=== PATIENT | male | born 1965 | race Caucasian/White ===

== ENCOUNTER 2016-11-08 09:00 | Observation (INO) | payer OTHER ==
[2016-10-29 08:12] VITALS: BMI 24.0
--- NOTE | 2016-10-29 08:39 | PAT Medication Instructions ---
Service Date Oct 29, 2016. Current Home Medication List Hydromorphone Hcl (Dilaudid), 2 MG PO Q6H PRN for Pain Oxycodone Ir (Roxicodone Ir), 5 MG PO Q4H PRN for Severe Pain Medication Instructions For Your Scheduled Surgery - Take the following medications the morning of surgery with a sip of water: Hydromorphone Hcl (Dilaudid), 2 MG PO Q6H PRN for Pain (can take up to four hours prior to surgery if needed) Oxycodone Ir (Roxicodone Ir), 5 MG PO Q4H PRN for Severe Pain (can take up to four hours prior to surgery if needed) - Take the following medications as scheduled the night before surgery: Hydromorphone Hcl (Dilaudid), 2 MG PO Q6H PRN for Pain Oxycodone Ir (Roxicodone Ir), 5 MG PO Q4H PRN for Severe Pain If you have any questions please call us at [phone] or [phone] ( Daniela)or [phone]
--- NOTE | 2016-10-29 08:56 | DIAGNOSTIC IMAGING REPORT ---
TWO VIEW CHEST CLINICAL HISTORY: Preoperative examination. FINDINGS: PA and lateral chest radiographs are obtained. No prior studies are available for comparison at the time of dictation. The cardiomediastinal silhouette is unremarkable. The lungs and pleural spaces are clear. There is no pneumothorax. The bony thorax appears intact. IMPRESSION: No active disease in the chest. Electronically signed by: Chemo Jarrell M.D. 10/29/2016 8:54 AM Dictated Date/Time: 10/29/2016 8:54 AM
--- NOTE | 2016-11-05 15:59 | HISTORY & PHYSICAL EXAMINATION ---
DATE OF ADMISSION: 11/08/2016 CHIEF COMPLAINT: Back and lower extremity difficulty. HISTORY OF PRESENT ILLNESS: Kai is a delightful gentleman, he is having surgery at [facility] 11/08/2016. He has a disc protrusion lumbar spine with leg pain, weakness, lower extremity difficulty, paresthesias and failure of conservative care. He has a large disc left hand side at L5-S1, is for discectomy procedure. PAST MEDICAL HISTORY: Negative for angina, chest pain, asthma, anxiety negative. No thyroid issues, diabetes, anemia. No kidney, liver disease, no carcinoma history. SOCIAL HISTORY: Smokeless tobacco, rarely drinks alcohol. No illicit drug use. PAST SURGICAL HISTORY: Lumbar spine surgery 2004, hernia repair. ALLERGIES: FLEXERIL. MEDICATIONS: Dilaudid, oxycodone, and Medrol Dosepak. REVIEW OF SYSTEMS: Denies blurred vision, double vision, tinnitus, vertigo. Denies chest pain, orthopnea, angina, palpitations. Denies nausea, vomiting, urgency, frequency. No loss of bowel and bladder function. Positive review is musculoskeletal, back and lower extremity difficulty. PHYSICAL EXAMINATION: GENERAL: Six foot, 185 pounds, in distress. He can barely get comfortable. This has been going on for several months. VITAL SIGNS: Blood pressure 130/80, pulse of 80, respiration rate 16, temperature 97.4. HEAD, EYES, EARS, NOSE, AND THROAT: Pupils react to light and accommodation. Ear, nose and throat clear. CARDIAC: Normal S1, S2, no S3, and no ectopy. LUNGS: Clear to auscultation. No rales, rhonchi or wheezing. ABDOMEN: Soft, nontender, bowel sounds present. EXTREMITIES: Intact x4. He is weak in his lower extremities. Pain with straight leg raising, weakness of dorsiflexion, weakness of plantarflexion, numbness and muscle atrophy. IMPRESSION: Disc herniation lumbar spine with weakness and failure of any conservative measures. DISPOSITION: Includes a lumbar spine discectomy surgery at [facility] on 11/08/2016. Instruction precautions given to the patient. The level of surgery will be L5-S1.
[2016-11-08] VITALS (7 sets, daily range): BP systolic 123–138; BP diastolic 75–92; PULSE 83–105; TEMP 36.4–37.1; O2SAT 95–99; Ht 182.9 cm; Wt 82.8 kg
[~2016-11-08] VITALS: Ht 182.9 cm; Wt 82.8 kg
[~2016-11-08 09:00] MED LIST: ATROPINE SULFATE 0.1 MG/ML 5ML SYR IV PRN; CEFAZOLIN 2000 MG/60 ML D5W 60 ML IV SCH; EpHEDrine SULFATE INJ 50 MG/ML AMP IV PRN; HYDR2TAB48 PO; LACTATED RINGER'S 1000ML 1,000 ML IV SCH; NSS 1000ML IV SCH; ONDANSETRON INJ 2 MG/ML 2 ML VIAL IV PRN; OXYC1TAB3 PO
[2016-11-08] MEDS ORDERED: IBUP-1450 PO (09:57)
[2016-11-08] MEDS ORDERED: ONDANSETRON INJ 2 MG/ML 2 ML VIAL ONE (12:56)
[2016-11-08] MEDS ORDERED: ROCURONIUM BROMIDE 10 MG/ML 5 ML VIAL ONE ×2 (12:56→15:01)
[2016-11-08] MEDS ORDERED: SUCCINYLCHOLINE CHLORIDE 20 MG/ML 10 ML VIAL IV ONE (12:56)
[2016-11-08] MEDS ORDERED: EpHEDrine SULFATE INJ 50 MG/ML AMP ONE (12:56)
[2016-11-08] MEDS ORDERED: MIDAZOLAM HCL 1 MG/ML 2ML VIAL ONE (12:56)
[2016-11-08] MEDS ORDERED: PHENYLEPHRINE HCL INJ 10 MG/ML VIAL ONE (12:56)
[2016-11-08] MEDS ORDERED: FENTANYL CITRATE INJ 50 MCG/1 ML 2 ML VIAL ONE ×3 (12:56→16:06)
[2016-11-08] MEDS ORDERED: DEXAMETHASONE SOD INJ 4 MG/ML VIAL ONE (12:56)
[2016-11-08] MEDS ORDERED: LIDOCAINE HCL 2% 2 ML VIAL (20MG/ML) ONE (12:56)
[2016-11-08] MEDS ORDERED: NEOSTIGMINE METHYLSULFATE 5 MG/5 ML SYR ONE (12:56)
[2016-11-08] MEDS ORDERED: PROPOFOL IV EMULSION 10 MG/ML 20 ML VIAL IV ONE (12:56)
[2016-11-08] MEDS ORDERED: GLYCOPYRROLATE INJ 0.2 MG/ML VIAL ONE (12:56)
--- NOTE | 2016-11-08 13:45 | History & Physical Bridge Note ---
H&P Re-Evaluation Bridge Note: I have examined the patient, reviewed the History & Physical and in the interval since the performance of the History & Physical I have noted the following changes of clinical significance: No changes noted
[2016-11-08] MEDS ORDERED: BACITRACIN 50000 UNIT VIAL IR ONE (15:01)
[2016-11-08] MEDS ORDERED: VANCOMYCIN HCL 1000MG/20ML VIAL TOP ONE (15:01)
[2016-11-08] MEDS ORDERED: THROMBIN FOR SOLN 20000 UNIT KIT TOP ONE (15:01)
[2016-11-08] MEDS ORDERED: BUPIVACAINE/EPINEPHRINE 0.5% MPF 1:200,000 30 ML VIAL INJ ONE (15:01)
[2016-11-08] MEDS ORDERED: GELATIN SPONGE SZ 100 TOP ONE (15:01)
[2016-11-08] MEDS ORDERED: SODIUM CHLORIDE 0.9% 1000ML 1,000 ML IV SCH (15:33)
--- NOTE | 2016-11-08 15:34 | [facility] Post Operative Brief Note ---
Immediate Operative Summary Operative Date Nov 08, 2016. Pre-Operative Diagnosis Disc herniation lumbar spine with weakness and failure of any conservative measures. Post-Operative Diagnosis Disc herniation lumbar spine with weakness and failure of any conservative measures. Procedure(s) Performed lumbar laminectomy and fusion L5-S1. Surgeon Dr. Jaren Hemphill State'S Attorney Surgeon(s) Kai Schmid PA-C Findings Massive disc herniation L5-S1 Specimens none, Per Surgeon Complication(s) None Disposition Recovery Room / PACU
[2016-11-08] MEDS ORDERED: OXYCODONE/ACETAMINOPHEN 5-325 TAB PO PRN (15:45)
[2016-11-08] MEDS ORDERED: IBUPROFEN 600 MG TAB PO PRN (15:45)
[2016-11-08] MEDS ORDERED: MAGNESIUM HYDROXIDE SUSP 30 ML UDC PO PRN (15:45)
[2016-11-08] MEDS ORDERED: ACETAMINOPHEN 325 MG TAB PO PRN (15:45)
[2016-11-08] MEDS ORDERED: PROMETHAZINE HCL INJ 12.5 MG in SODIUM CHLORIDE 0.9% 50ML 50 ML IV PRN (15:45)
[2016-11-08] MEDS ORDERED: HYDROmorphone INJ 1 MG/ML SYR IV PRN (15:45)
[2016-11-08] MEDS ORDERED: METOCLOPRAMIDE HCL INJ 5 MG/ML 2 ML VIAL IV PRN (15:45)
[2016-11-08] MEDS ORDERED: LORAZEPAM 1 MG TAB PO PRN (15:45)
[2016-11-08] MEDS ORDERED: ONDANSETRON INJ 2 MG/ML 2 ML VIAL IV PRN (15:45)
[2016-11-08] MEDS ORDERED: LORAZEPAM INJ 1 MG in SYRINGE 0 ML IV PRN (15:45)
[2016-11-08] MEDS: FENTANYL CITRATE INJ 50 MCG/1 ML 2 ML VIAL IV PRN ×2 (16:13→16:20)
--- NOTE | 2016-11-08 16:13 | OPERATIVE REPORT ---
DATE OF OPERATION: 11/08/2016 PREOPERATIVE DIAGNOSIS: Disk herniation, lumbar spine L5-S1. POSTOPERATIVE DIAGNOSIS: Massive disk herniation L5-S1, left. SURGEON: Dr. Hemphill. SUPERVISING LAW ENFORCEMENT ANALYST: Kai Huffman PA-C. COMPLICATIONS: Zero. BLOOD LOSS: 100 mL. DESCRIPTION OF PROCEDURE: The patient was taken to the operating room and general intubated anesthetic provided to the patient, placed prone, shaved, scrubbed, prepped, formal timeout obtained. We made a skin incision, fascial incision. We came right down to the L5-S1 interspace. We did an upgoing laminectomy on to the lamina L5 downgoing at sacrum, foraminotomy took off a small piece of the ligamentum flavum. I retracted the dura in a medial direction. I probed to make sure was the disc itself versus the nerve root, used a spinal needle and checked and rechecked, made sure I was in the safe zone. We pulled off a big piece of disk herniation. We then went to the disc interval itself. We went up about a centimeter, another massive piece of disc material. We did not weigh the aggregate but it was one of the largest 2 to 3 discs I have witnessed in my career. We then irrigated, closed in layers, 3-0 nylon on the skin. Sterile dressing applied all over Hemovac drain and over vancomycin powder. The patient then returned supine, extubated to PACU stable. No apparent complications. I attest to the content of the Intraoperative Record and any orders documented therein. Any exceptio ns are noted below.
[2016-11-08] MEDS ORDERED: IV FLUIDS COMPLETED PRN (16:15)
[2016-11-08] MEDS: HYDROmorphone INJ 1 MG/ML SYR IV PRN ×5 (16:29→23:19)
--- NOTE | 2016-11-08 16:33 | DIAGNOSTIC IMAGING REPORT ---
LUMBAR SPINE, INTRAOPERATIVE FLUOROSCOPY HISTORY: L5-S1 laminectomy. FLUOROSCOPY TIME: 2 seconds. FINDINGS: Intraoperative fluoroscopy was provided for the lumbar spine. A single fluoroscopic spot image was submitted. There are surgical instruments posterior to the L5-S1 level. IMPRESSION: Fluoroscopy provided for a L5-S1 posterior decompression and fusion. Electronically signed by: Kian Sheehan M.D. 11/08/2016 4:31 PM Dictated Date/Time: 11/08/2016 4:30 PM
--- NOTE | 2016-11-08 17:17 | Anesthesiology Progress Note ---
Anesthesia Post Op Note Date & Time Nov 08, 2016 at 17:16 Vital Signs Pain Intensity: 5 Vital Signs Past 12 Hours Date Time Temp Pulse Resp B/P Pulse Ox O2 Delivery O2 Flow Rate FiO2 11/08/16 16:50 104 28 141/96 97 Nasal Cannula 2 11/08/16 16:40 110 19 106/85 96 Nasal Cannula 2 11/08/16 16:30 93 20 142/87 97 Nasal Cannula 2 11/08/16 16:20 91 20 142/87 97 Nasal Cannula 2 11/08/16 16:10 95 23 146/91 97 Nasal Cannula 2 11/08/16 16:00 96 23 146/89 96 Mask 13 11/08/16 15:52 107 15 116/91 96 Mask 13 11/08/16 15:42 36.6 100 20 134/86 99 Mask 13 11/08/16 10:00 36.9 102 18 123/92 97 Room Air Notes Mental Status: alert / awake / arousable, participated in evaluation Pt Amnestic to Procedure: Yes Nausea / Vomiting: adequately controlled Pain: adequately controlled Airway Patency, RR, SpO2: stable & adequate BP & HR: stable & adequate Hydration State: stable & adequate Anesthetic Complications: no major complications apparent
[2016-11-08] MEDS: OXYCODONE/ACETAMINOPHEN 5-325 TAB PO PRN (18:27)
[2016-11-08] MEDS: KETOROLAC TROMETHAMINE 30 MG/ML VIAL IV SCH (20:38)
[2016-11-08] MEDS: CEFAZOLIN IV 2,000 MG in DEXTROSE 5% 50ML 50 ML IV SCH (22:37)
[2016-11-08] MEDS: DEXAMETHASONE INJ 10 MG in SYRINGE 0 ML IV SCH (22:37)
[2016-11-09] MEDS: KETOROLAC TROMETHAMINE 30 MG/ML VIAL IV SCH ×2 (02:00→07:14)
[2016-11-09] MEDS ORDERED: NURSING VERBAL MED ORDER ONE (02:15)
[2016-11-09 02:50] VITALS: BP 132/79; PULSE 104; TEMP 36.9; O2SAT 95
[2016-11-09] MEDS: OXYCODONE/ACETAMINOPHEN 5-325 TAB PO PRN ×2 (03:43→10:00)
[2016-11-09] MEDS: DEXAMETHASONE INJ 10 MG in SYRINGE 0 ML IV SCH (05:27)
[2016-11-09] MEDS: CEFAZOLIN IV 2,000 MG in DEXTROSE 5% 50ML 50 ML IV SCH (05:27)
[2016-11-09] MEDS ORDERED: BISACODYL 5 MG TABEC PO PRN (06:00)
[2016-11-09] MEDS ORDERED: BISACODYL 10 MG SUPP PR PRN (06:00)
[2016-11-09] MEDS: HYDROmorphone INJ 1 MG/ML SYR IV PRN (06:20)
[2016-11-09 06:50] VITALS: BP 147/85; PULSE 94; TEMP 36.9; O2SAT 95
--- NOTE | 2016-11-09 07:31 | Discharge Instructions ---
Discharge Instructions Admission Reason for Admission: Prolapsed Lumbar Iv Disc, Disc Herniation L5-S1 Discharge Discharge Diagnosis / Problem: disc herniation Discharge Goals Goal(s): Improve function Activity Recommendations Activity Limitations: as noted below Lifting Limitations: no more than 5 pounds Exercise/Sports Limitations: until after follow-up appointment May Resume Sexual Activity: after follow-up appointment Shower/Bathe: keep incision dry Driving or Machine Use: home, rest recover , until follow up . Current Hospital Diet Patient's current hospital diet: Regular Diet Discharge Diet Recommended Diet: Regular Diet Fluid Restriction: None Procedures Procedures Performed: lumbar laminectomy and disectomy Pending Studies Studies pending at discharge: no Medical Emergencies . Who to Call and When: Medical Emergencies: If at any time you feel your situation is an emergency, please call 911 immediately. . Non-Emergent Contact Non-Emergency issues call your: Surgeon Call Non-Emergent contact if: you have any medication questions . "Provider Documentation" section prepared by Jaren Hemphill. VTE Core Measure Inpt VTE Proph given/why not?: Treatment not tolerated
--- NOTE | 2016-11-09 07:45 | DISCHARGE SUMMARY ---
SUBJECTIVE: Alert, oriented. No chest pain, shortness of breath, confusion. OBJECTIVE: Vital signs stable. Lab work appropriate. ASSESSMENT: Status post discectomy lumbar spine, improved, stable. DISPOSITION: He will be up and ambulatory today. I will have him discharged home a little bit after lunchtime. Will keep him within a 23-hour window. He will be discharged home in improved condition, stable condition. Instructions, precautions given in the office and here at the hospital. Careful with bending, stooping, lifting, no driving. Incision kept clean and dry at all times. Back brace should be worn when up and ambulatory. Again no bending, no driving. Follow up in approximately 12 days in the office. Prescriptions are on his chart.
--- NOTE | 2016-11-09 08:07 | Anesthesiology Progress Note ---
Anesthesia Post Op Note Date & Time Nov 09, 2016 at 08:07 Vital Signs Pain Intensity: 8.0 Vital Signs Past 12 Hours Date Time Temp Pulse Resp B/P Pulse Ox O2 Delivery O2 Flow Rate FiO2 11/09/16 07:11 Room Air 11/09/16 06:50 36.9 94 18 147/85 95 Room Air 11/09/16 02:50 36.9 104 18 132/79 95 Room Air 11/08/16 23:30 Room Air 11/08/16 22:53 37.0 83 16 138/89 96 Room Air 11/08/16 20:43 36.4 94 18 137/84 96 Room Air Notes Mental Status: alert / awake / arousable, participated in evaluation Pt Amnestic to Procedure: Yes Nausea / Vomiting: adequately controlled Pain: adequately controlled Airway Patency, RR, SpO2: stable & adequate BP & HR: stable & adequate Hydration State: stable & adequate Anesthetic Complications: no major complications apparent
[2016-11-09] MEDS ORDERED: POLYETHYLENE (MIRALAX) 17 GM PACK PO SCH (09:00)
[2016-11-09 09:22] VITALS: BP 147/85; PULSE 94; TEMP 36.9; O2SAT 95
[2016-11-09 10:56] VITALS: BP 131/83; PULSE 94; TEMP 36.5; O2SAT 96
[2016-11-09] MEDS ORDERED: INFLUENZA ADMINISTRATION CHARGE ONE (12:30)
[2016-11-09] MEDS ORDERED: INFLUENZA VIRUS QUAD VACCINE 0.5 ML SYR IM. ONE (12:30)
== END 2016-11-09 13:07 | disposition home or self-care (01) ==
LOC: ENRESERVTM → ENRESERVDT → C.ACU 09:00 → C.3E 15:37
PROVIDERS: ADMIT Orthopaedic Surgery Orthopaedic Surgery of the Spine; ATTEND Orthopaedic Surgery Orthopaedic Surgery of the Spine
DX: M51.27 Other intervertebral disc displacement, lumbosacral region (principal); Z72.0 Tobacco use

== ENCOUNTER 2021-02-23 04:11 | Observation (INO) ==
[2021-02-23] MEDS ORDERED: HYDROmorphone INJ 1 MG/ML SYRINGE IV STA (04:35)
--- NOTE | 2021-02-23 04:37 | Emergency Department Note ---
History of Present Illness General Chief complaint: Rib Injury/Pain Stated complaint: RIB PAIN/BREATHING DIFFICULTY Time Seen by Provider: 02/23/21 04:23 Source: patient Mode of arrival: EMS Limitations: no limitations History of Present Illness Maximum Pain Intensity: 10 This patient is a 56-year-old male who presents to the emergency department for evaluation of right-sided rib/abdominal pain. Patient states that he fell through steps 3 days ago. He states that he was walking up the steps when they broke, causing him to fall through the steps. He was about 3 feet off the ground when this occurred. He sustained an injury to the right lower ribs. He admits he has been taking oral morphine pills for this which are not prescribed to him. He also injured the right hip and has been having pain in the hip. He states that at times, he has pain so severe that it causes him to vomit. He states that last night, he had some much pain that he vomited and then felt a pop in his right side. He reports trouble breathing and pain through the right lower ribs and abdomen. He rates his discomfort a 10/10. Home Medications Medication Instructions Recorded Confirmed Type Ibuprofen (MOTRIN) 600 mg PO Q6H PRN #0 tab 11/08/16 02/23/21 History aripiprazole [Abilify] 10 mg PO DAILY 02/23/21 02/23/21 History escitalopram oxalate [Lexapro] 10 mg PO DAILY 02/23/21 02/23/21 History acetaminophen 1,000 mg PO TID #90 tab 02/24/21 Rx lidocaine 1 patch TRANSDERMAL HS #10 ea 02/24/21 Rx oxycodone 5 - 10 mg PO TID PRN #20 tab 02/24/21 Rx Allergies Allergy/AdvReac Type Severity Reaction Status Date / Time cyclobenzaprine AdvReac Unknown RASH ON Verified 11/08/16 09:53 FACE Past Med/Surg History Medical History Depression with anxiety No significant active problems Surgical History History of back surgery Social History Smoking Status: Never smoker Second Hand Exposure: Yes; Hx Alcohol Use: Yes Alcohol type: beer Hx Substance Use: Yes Last Used Substance: Unknown Preferred Language: Bengali Communication Ability: Effective Director Of Gift Planning Required: No Beliefs That Will Affect Care: None Current Living Situation: Other Feels Safe at Home: Yes Assistive Devices: None Review of Systems A total of 10 systems reviewed and were otherwise negative Physical Exam Vital Signs Vital Signs - 24 hr 02/23/21 04:22 Temperature 36.7 C Temperature Source Oral Pulse Rate 88 Respiratory Rate 20 Respiratory Effort / Characteristics Labored Respiratory Depth Shallow Blood Pressure 147/98 H Blood Pressure Mean 114 Pulse Oximetry 88 L Oxygen Delivery Method Room Air Sepsis Recent Fever Within 48 Hours No Sepsis New/Unexplained Change in Mental Status No Sepsis Action Taken by Nursing No Action Required Oxygen Flow Rate - Titration 2 Pulse Oximetry Post Tiitration 95 VITALS: Vitals are noted on the nurse's note and reviewed by myself. GENERAL: This is a 56-year-old male, uncomfortable appearing, holding his right ribs and abdomen. SKIN: There is ecchymosis to the right lower abdomen. There is an abrasion and ecchymosis to the right lateral thigh. HEAD: Normocephalic atraumatic. EARS: External auditory canals clear, tympanic membranes pearly minor without erythema or effusion bilaterally. No hemotympanum. EYES: Pupils equal round and reactive to light and accommodation. Extraocular movements intact. MOUTH: Mucous membranes moist. NECK: Supple without nuchal rigidity. Cervical spine is nontender. HEART: Regular rate and rhythm without murmurs gallops or rubs. LUNGS: Decreased in the right base. No retractions. ABDOMEN: Positive bowel sounds x 4. Tenderness in the right upper and lower quadrants. MUSCULOSKELETAL: There is tenderness to palpation of the right lateral lower ribs. Tenderness in the right lateral hip/thigh. NEURO: Patient was alert and oriented to person place and time. Course Administered Medications Discontinued Medications Acetaminophen (Acetaminophen 500 Mg Tab) 1,000 mg PO TID HALLE Stop: 03/25/21 20:59 Last Admin: 02/24/21 08:35 Dose: 1,000 mg Documented by: [id number] Admin: 02/23/21 20:52 Dose: 1,000 mg Documented by: [id number] Famotidine (Famotidine 20mg/5ml Iv Push) Confirm Administered Dose 20 mg IV .[facility] ONE Stop: 02/23/21 06:45 Last Admin: 02/23/21 06:46 Dose: 20 mg Documented by: [id number] Hydromorphone HCl (Hydromorphone Inj 1 Mg/Ml Syringe) 1 mg IV NOW STA Stop: 02/23/21 04:36 Last Admin: 02/23/21 04:50 Dose: 1 mg Documented by: [id number] Sodium Chloride (Nss 1000ml) 1,000 mls @ 999 mls/hr IV .Q1H1M ONE Stop: 02/23/21 06:43 Last Infusion: 02/23/21 07:35 Dose: 0 mls/hr Documented by: [id number] Admin: 02/23/21 06:11 Dose: 999 mls/hr Documented by: [id number] Famotidine 20 mg/ Syringe 5 mls @ 2.5 mls/min IV Q12H HALLE Stop: 03/25/21 06:59 Last Admin: 02/24/21 06:34 Dose: 2.5 mls/min Documented by: [id number] Admin: 02/23/21 20:53 Dose: 2.5 mls/min Documented by: [id number] Admin: 02/23/21 06:46 Dose: Not Given Documented by: [id number] Piperacillin Sod/Tazobactam (Sod 3.375 gm/ Dextrose) 115 mls @ 230 mls/hr IV NOW ONE Stop: 02/23/21 09:44 Last Infusion: 02/23/21 10:40 Dose: 0 mls/hr Documented by: [id number] Admin: 02/23/21 10:10 Dose: 230 mls/hr Documented by: [id number] Potassium Chloride/Sodium Chloride (Normal Saline W/20 Meq Kcl) 20 meq in 1,000 mls @ 125 mls/hr IV .Q8H HALLE Stop: 03/25/21 09:29 Last Admin: 02/24/21 03:18 Dose: Not Given Documented by: [id number] Admin: 02/24/21 02:44 Dose: 125 mls/hr Documented by: [id number] Infusion: 02/23/21 18:20 Dose: 0 mls/hr Documented by: [id number] Admin: 02/23/21 10:09 Dose: 125 mls/hr Documented by: [id number] Piperacillin Sod/Tazobactam (Sod 3.375 gm/ Dextrose) 115 mls @ 28.75 mls/hr IV Q8H [facility]; Protocol Stop: 03/05/21 13:59 Last Infusion: 02/24/21 10:44 Dose: 0 mls/hr Documented by: [id number] Admin: 02/24/21 06:34 Dose: 28.8 mls/hr Documented by: [id number] Infusion: 02/24/21 01:44 Dose: 0 mls/hr Documented by: [id number] Admin: 02/23/21 20:53 Dose: 28.8 mls/hr Documented by: [id number] Infusion: 02/23/21 18:24 Dose: 0 mls/hr Documented by: [id number] Admin: 02/23/21 14:24 Dose: 28.8 mls/hr Documented by: [id number] Ioversol (Optiray 300 100ml) 88 ml IV ONCE ONE Stop: 02/23/21 04:59 Last Admin: 02/23/21 04:59 Dose: 88 ml Documented by: [id number] Ketorolac Tromethamine (Ketorolac 30 Mg/Ml Vial) 30 mg IV Q6H [facility] Stop: 02/25/21 07:59 Last Admin: 02/24/21 08:35 Dose: 30 mg Documented by: [id number] Lidocaine (Lidocaine 5% 1 Patch) 1 patch TD QAM [facility] Stop: 03/25/21 14:14 Last Admin: 02/23/21 18:23 Dose: Not Given Documented by: [id number] Lidocaine (Lidocaine 5% 1 Patch) 1 patch TD HS [facility] Stop: 03/25/21 20:59 Last Admin: 02/23/21 22:23 Dose: 1 patch Documented by: [id number] Methylnaltrexone Tina (Methylnaltrexone Tina 12 Mg/0.6 Ml Vial) 12 mg SQ ONE ONE Stop: 02/23/21 15:16 Last Admin: 02/23/21 15:43 Dose: 12 mg Documented by: [id number] Miscellaneous (Remove Lidoderm Patch) 1 ea N/A DAILY@0900 [facility] Stop: 03/26/21 08:59 Last Admin: 02/24/21 08:36 Dose: 1 ea Documented by: [id number] Morphine Sulfate (Morphine Sulfate 2 Mg/Ml Carp) 2 mg IV Q4 PRN PRN Reason: Pain Stop: 03/09/21 14:07 Last Admin: 02/24/21 07:35 Dose: 2 mg Documented by: [id number] Admin: 02/23/21 15:52 Dose: 2 mg Documented by: [id number] Ondansetron HCl (Ondansetron Inj 2 Mg/Ml 2 Ml Vial) 4 mg IV NOW STA Stop: 02/23/21 05:44 Last Admin: 02/23/21 06:11 Dose: 4 mg Documented by: [id number] Medical Decision Making Differential Diagnosis Fracture, dislocation, contusion, intra-abdominal, pneumothorax, intrathoracic, intracranial, neurologic, compartment syndrome, rhabdomyolysis, as well as other pathologies. Home Medications Current Medication List: was personally reviewed by me Laboratory Data Attestation: I reviewed the patient's lab results. Result diagrams: 02/24/21 05:41 02/24/21 05:41 Lab Results 02/23/21 02/23/21 02/23/21 Range/Units 04:25 04:25 04:45 WBC 9.07 (4.8-10.8) K/uL RBC 4.13 L (4.7-6.1) M/uL Hgb 13.5 L (14.0-18.0) g/dL POC Hgb 13.3 L (14.0-18.0) g/dl Hct 39.3 L (42-52) % POC Hct 39 L (42-52) % MCV 95.2 (80-100) fL MCH 32.7 (25-34) pg MCHC 34.4 (32-36) g/dL RDW Std Deviation 46.4 H (36.4-46.3) fL RDW Coeff of Nick 13.4 (11.5-14.5) % Plt Count 284 (130-400) K/uL MPV 8.9 (7.4-10.4) fL Immature Gran % (Auto) 0.2 % Neut % (Auto) 78.5 % Lymph % (Auto) 11.8 % [place] % (Auto) 6.8 % Eos % (Auto) 2.5 % Baso % (Auto) 0.2 % Neut # (Auto) 7.11 H (1.4-6.5) K/uL Lymph # (Auto) 1.07 L (1.2-3.4) K/uL [place] # (Auto) 0.62 H (0.11-0.59) K/uL Eos # (Auto) 0.23 (0-0.5) K/uL Baso # (Auto) 0.02 (0-0.2) K/uL Immature Gran # (Auto) 0.02 (0.00-0.02) K/uL POC Sodium 139 (135-144) mmol/L Sodium 141 (136-145) mmol/L POC Potassium 4.4 (3.3-5.0) mmol/L Potassium 4.5 (3.5-5.1) mmol/L POC Chloride 104 (101-112) mmol/L Chloride 109 H (98-107) mmol/L Carbon Dioxide 27 (21-32) mmol/L POC Total CO2 26 (24-31) mmol/L Anion Gap 5.0 (3-11) POC Anion Gap 15.0 L (16-25) mmol/L POC BUN 13 (7-18) mg/dl BUN 12 (7-18) mg/dl Creatinine 0.75 (0.6-1.4) mg/dl POC Creatinine 0.7 (0.6-1.3) mg/dl Est Cr Clr Drug Dosing 126.0 ml/min Est GFR ( Amer) 118.9 Est GFR (Non-Af Amer) 102.5 BUN/Creatinine Ratio 16.6 (10-20) Glucose 127 H (70-99) mg/dl POC Glucose (other) 127 H (70-99) mg/dl Calcium 8.5 (8.5-10.1) mg/dl POC Ioniz Calcium Silvio 1.21 (1.12-1.32) mmol/l Total Bilirubin 0.6 (0.2-1) mg/dl AST 60 H (15-37) U/L ALT 64 (12-78) U/L Alkaline Phosphatase 69 (45-117) U/L Total Protein 7.1 (6.4-8.2) gm/dl Albumin 3.4 (3.4-5.0) gm/dl Globulin 3.7 (2.5-4.0) gm/dl Albumin/Globulin Ratio 0.9 (0.9-2) Lipase 103 (73-393) U/L COVID-19 Eval Order SARS-CoV-2, RNA, NAAT (NEGATIVE) 02/23/21 02/23/21 Range/Units 05:29 05:29 WBC (4.8-10.8) K/uL RBC (4.7-6.1) M/uL Hgb (14.0-18.0) g/dL POC Hgb (14.0-18.0) g/dl Hct (42-52) % POC Hct (42-52) % MCV (80-100) fL MCH (25-34) pg MCHC (32-36) g/dL RDW Std Deviation (36.4-46.3) fL RDW Coeff of Nick (11.5-14.5) % Plt Count (130-400) K/uL MPV (7.4-10.4) fL Immature Gran % (Auto) % Neut % (Auto) % Lymph % (Auto) % [place] % (Auto) % Eos % (Auto) % Baso % (Auto) % Neut # (Auto) (1.4-6.5) K/uL Lymph # (Auto) (1.2-3.4) K/uL [place] # (Auto) (0.11-0.59) K/uL Eos # (Auto) (0-0.5) K/uL Baso # (Auto) (0-0.2) K/uL Immature Gran # (Auto) (0.00-0.02) K/uL POC Sodium (135-144) mmol/L Sodium (136-145) mmol/L POC Potassium (3.3-5.0) mmol/L Potassium (3.5-5.1) mmol/L POC Chloride (101-112) mmol/L Chloride (98-107) mmol/L Carbon Dioxide (21-32) mmol/L POC Total CO2 (24-31) mmol/L Anion Gap (3-11) POC Anion Gap (16-25) mmol/L POC BUN (7-18) mg/dl BUN (7-18) mg/dl Creatinine (0.6-1.4) mg/dl POC Creatinine (0.6-1.3) mg/dl Est Cr Clr Drug Dosing ml/min Est GFR ( Amer) Est GFR (Non-Af Amer) BUN/Creatinine Ratio (10-20) Glucose (70-99) mg/dl POC Glucose (other) (70-99) mg/dl Calcium (8.5-10.1) mg/dl POC Ioniz Calcium Silvio (1.12-1.32) mmol/l Total Bilirubin (0.2-1) mg/dl AST (15-37) U/L ALT (12-78) U/L Alkaline Phosphatase (45-117) U/L Total Protein (6.4-8.2) gm/dl Albumin (3.4-5.0) gm/dl Globulin (2.5-4.0) gm/dl Albumin/Globulin Ratio (0.9-2) Lipase (73-393) U/L COVID[facility], [facility], NAAT NEGATIVE (NEGATIVE) Imaging Data Attestation: I personally reviewed and interpreted this imaging study as follows: Radiologist's Impression: CT abd pelvis IV con only FINDINGS: Lower chest: There is a small hiatal hernia. There is a fluid-filled esophagus. There are basilar atelectatic changes. There is a trace right pleural effusion.1 Liver: The contrast-enhanced liver is normal in size, contour, and attenuation. There is no intrahepatic biliary ductal dilatation. The hepatic veins and portal veins are patent. Gallbladder: Unremarkable. Spleen: Normal in size and attenuation. Pancreas: Unremarkable. Adrenal glands: Unremarkable. Kidneys: There is a 3 mm lower pole left renal calculus. No solid renal masses are visualized. There is no hydronephrosis. Bowel: There is a small bowel feces sign. There are dilated fluid-filled small bowel loops. A discrete transition zone is not clearly visualized. Diagnostic considerations include partial small bowel obstruction versus ileus. The appendix appears normal. There is no acute diverticulitis. There is moderate right colonic stool Peritoneum: There is no intraperitoneal free air or abdominal ascites. Vasculature: The abdominal aorta is normal in course and caliber. Adenopathy: None. Pelvic viscera: The bladder, and pelvic viscera are unremarkable. Skeletal structures: There are acute fractures the right ninth and 11th ribs. There is an old deformity of the left 12th rib. IMPRESSION: 1. No evidence of acute intra-abdominal or pelvic injury. 2. Acute fractures of the right ninth and 11th ribs. 3. Small hiatal hernia with a fluid-filled esophagus 4. Mild distended FLUID-FILLED small bowel loops with air-fluid levels and a small bowel feces sign. Diagnostic considerations include ileus versus partial small bowel obstruction. Clinical and/or imaging follow-up are recommended. CT OF THE CHEST WITH IV CONTRAST FINDINGS: There is no evidence for traumatic injury to the thoracic aorta. Small hiatal hernia is noted. Esophagus is mildly fluid-filled. Size of the heart is normal. No pericardial effusion. There is no pneumothorax. Trace right pleural effusion is noted. Subpleural opacities reflect atelectasis. Note is made of several acute right-sided rib fractures which are better depicted on the CT of the abdomen and pelvis. These include an acute minimally displaced fracture of the anterior right ninth rib as well as an acute mildly displaced fracture of the right 11th rib. There is an acute nondisplaced fracture of the anterior right seventh rib. IMPRESSION: 1. No evidence for traumatic injury to the thoracic aorta. 2. Acute mildly displaced fracture of the right 11th rib, minimally displaced fracture of the anterior right ninth rib and nondisplaced fracture of the anterior right seventh rib, better depicted on the CT of the abdomen and pelvis. No pneumothorax. Trace right pleural effusion. 3. Small hiatal hernia with fluid-filled esophagus which may reflect reflux. ECG Data Indication: + other (trauma) Rate (beats per minute): 86 Rhythm: + normal sinus ECG Intervals/blocks: + Normal QRS ECG ST segments: + Normal ST segments Change: no significant change MDM Narrative Continuous monitoring coordinator: Order was placed for continuous monitoring coordinator. Patient was placed on the monitoring coordinator. Patient was noted to be in normal sinus rhythm at an initial rate of 88 bpm. The patient is a 56-year-old male who presents today complaining of right sided rib and abdominal pain after a fall 2 days [employer]. Patient found to have multiple right sided rib fractures. He was also found to have an ileus, likely secondary to his narcotic use at home. He has had abdominal pain and vomiting. He was given pain and nausea medication in the ED. Case was discussed with the [facility] hospitalist. Impression & Plan Right rib fracture, Ileus Discharge Plan Visit Data Chief Complaint: Rib Injury/Pain Stated Complaint: RIB PAIN/BREATHING DIFFICULTY ED Provider: Heather Webber ED Midlevel Provider: Cortney Diego Discharge Problem: Right rib fracture, Ileus Patient Disposition: Admitted As Inpatient Discharge Instructions Interventions: ED Discharge Assessment Last Done: 02/23/21 08:17
[2021-02-23 04:53] LABS: Basophils # (auto) 0.02 K/uL (0-0.2); Basophils % (auto) 0.2 %; Eosinophils # (auto) 0.23 K/uL (0-0.5); Eosinophils % (auto) 2.5 %; Hematocrit (blood only) 39.3 % (42-52); Hemoglobin 13.5 g/dL (14.0-18.0); Immature Granulocytes # (auto) 0.02 K/uL (0.00-0.02); Immature Granulocytes % (auto) 0.2 %; Lymphocytes # (auto) 1.07 K/uL (1.2-3.4); Lymphocytes % (auto) 11.8 %; Mean Corpuscular Hemoglobin 32.7 pg (25-34); Mean Corpuscular Hgb Conc 34.4 g/dL (32-36); Mean Corpuscular Volume 95.2 fL (80-100); Mean Platelet Volume 8.9 fL (7.4-10.4); Monocytes # (auto) 0.62 K/uL (0.11-0.59); Monocytes % (auto) 6.8 %; Neutrophils # (auto) 7.11 K/uL (1.4-6.5); Neutrophils % (auto) 78.5 %; Platelet Count 284 K/uL (130-400); RDW Coefficient of Variation 13.4 % (11.5-14.5); RDW Standard Deviation 46.4 fL (36.4-46.3); Red Blood Count 4.13 M/uL (4.7-6.1); White Blood Count 9.07 K/uL (4.8-10.8)
[2021-02-23] MEDS ORDERED: OPTIRAY 300 100mL IV ONE (04:58)
[2021-02-23 05:01] LABS: Albumin Level 3.4 gm/dl (3.4-5.0); BUN Creatinine Ratio 16.6 (10-20); Calcium 8.5 mg/dl (8.5-10.1); Est GFR (African American) 118.9; Est GFR (Non-African American) 102.5; Potassium 4.5 mmol/L (3.5-5.1)
[2021-02-23 05:03] LABS: Albumin Globulin Ratio 0.9 (0.9-2); Bilirubin,Total 0.6 mg/dl (0.2-1); Globulin 3.7 gm/dl (2.5-4.0); Total Protein 7.1 gm/dl (6.4-8.2)
[2021-02-23] MEDS ORDERED: SODIUM CHLORIDE 0.9% 1000ML 1,000 ML IV ONE (05:43)
[2021-02-23] MEDS ORDERED: ONDANSETRON INJ 2 MG/ML 2 ML VIAL IV STA (05:43)
--- NOTE | 2021-02-23 06:25 | History & Physical Report ---
Date of Service February 23, 2021 Assessment & Plan (1) Ileus: Ileus/intractable nausea vomiting/hiatal hernia with GERD/at risk for aspiration with fluid in esophagus- NPO Patient reports to ED staff taking oral morphine, which likely caused his symptoms Zofran 4 mg IV every 6 hours as needed Famotidine 20 mg IV every 12 hours Zosyn 3.375 mg IV every 8 hours NSS + KCl 20 mEq at 125 mL's per hour Follow serial CBC with differential, chemistry profile and magnesium level Consult general surgery Present on Admission?: Yes (2) Intractable nausea and vomiting: See above Present on Admission?: Yes (3) At risk for aspiration: See above Present on Admission?: Yes (4) Hiatal hernia with GERD: See above Present on Admission?: Yes (5) Closed rib fracture: Closed right 11th rib fracture- Status post mechanical fall Lidoderm patch during the day, Voltaren gel at nighttime Present on Admission?: Yes (6) Right rib fracture: See above Present on Admission?: Yes (7) Depression with anxiety: Hold Zyprexa and Lexapro while n.p.o. Present on Admission?: Yes History of Present Illness Chief Complaint: The patient presents to the emergency department with complaint of abdominal distention, nausea and vomiting all evening prior to arrival in ED Primary Care Provider: NO PCP The patient is a 56-year-old male with history of depression with anxiety, left lumbar radiculitis, lumbar generative disc disease with radiculopathy status post surgery x2, who presents with the above symptoms. He reportedly told ED ROGERS that he was taking oral morphine. Allergies Allergy/AdvReac Type Severity Reaction Status Date / Time cyclobenzaprine AdvReac Unknown RASH ON Verified 11/08/16 09:53 FACE Home Medications Medication Instructions Recorded Confirmed Type Ibuprofen (MOTRIN) 600 mg PO Q6H PRN #0 tab 11/08/16 02/23/21 History aripiprazole [Abilify] 10 mg PO DAILY 02/23/21 02/23/21 History escitalopram oxalate [Lexapro] 10 mg PO DAILY 02/23/21 02/23/21 History Past Med/Surg History Medical History (Updated 02/23/21 @ 06:24 by Oscar Burr MD) Depression with anxiety No significant active problems Surgical History History of back surgery Social History Smoking Status: Never smoker Feels Safe at Home: Yes Review of Systems Review of Systems: The patient denies chest pain, palpitations, shortness of breath, dyspnea on exertion, cough, lower extremity swelling, sore throat, fevers, chills, sweats, blood in urine or stool, dysuria, urinary frequency or urgency, lightheadedness, dizziness, headache, memory loss, loss of consciousness, rash, abnormal bruising or bleeding, imbalance, focal or generalized weakness, numbness or tingling in arms or legs, generalized arthralgias or myalgias, neck pain, or night sweats. The review of systems is otherwise negative other than for that already noted above, and at least 10 systems have been reviewed. Physical Exam Physical Exam: The patient is awake, alert and oriented 3, well developed and well nourished, normocephalic and atraumatic, lying in bed and in no acute distress. HEENT--PERRL, EOMI, mucous membranes and oropharynx dry. Neck--supple. No JVD. No bruits. Thyroid normal, trachea midline, no anastasiia opathy. Heart--normal S1 and S2. No murmurs, rubs or gallops. Lungs--clear bilaterally, no respiratory distress, no accessory muscle use. Abdomen--absent bowel sounds. Mildly firm, moderately distended. Extremities--no cyanosis or clubbing. No edema. Dermatologic--normal skin turgor, normal color, no abnormal lymph nodes, no rash. Neurologic--cranial nerves II through XII grossly intact. Rheumatologic--normal range of motion. Psychiatric--normal affect. Results & Data Results & Data ([facility]) Vital Signs (Past 12 Hours) Vital Signs Temp Pulse Resp BP Pulse Ox 02/23/21 05:17 89 L 02/23/21 05:15 83 19 131/91 89 L 02/23/21 05:14 24 02/23/21 04:50 84 23 97 02/23/21 04:40 82 19 96 02/23/21 04:30 83 26 H 97 02/23/21 04:22 98.1 F 88 20 147/98 H 88 L 02/23/21 04:20 86 24 96 02/23/21 04:18 85 24 96 02/23/21 04:13 88 26 H 147/98 H 96 Laboratory Results Laboratory Results WBC 9.07 K/uL (4.8-10.8) 02/23/21 04:25 RBC 4.13 M/uL (4.7-6.1) L 02/23/21 04:25 Hgb 13.5 g/dL (14.0-18.0) L 02/23/21 04:25 Hct 39.3 % (42-52) L 02/23/21 04:25 MCV 95.2 fL (80-100) 02/23/21 04:25 MCH 32.7 pg (25-34) 02/23/21 04:25 MCHC 34.4 g/dL (32-36) 02/23/21 04:25 RDW Std Deviation 46.4 fL (36.4-46.3) H 02/23/21 04:25 RDW Coeff of Nick 13.4 % (11.5-14.5) 02/23/21 04:25 Plt Count 284 K/uL (130-400) 02/23/21 04:25 MPV 8.9 fL (7.4-10.4) 02/23/21 04:25 Immature Gran % (Auto) 0.2 % 02/23/21 04:25 Neut % (Auto) 78.5 % 02/23/21 04:25 Lymph % (Auto) 11.8 % 02/23/21 04:25 [place] % (Auto) 6.8 % 02/23/21 04:25 Eos % (Auto) 2.5 % 02/23/21 04:25 Baso % (Auto) 0.2 % 02/23/21 04:25 Neut # (Auto) 7.11 K/uL (1.4-6.5) H 02/23/21 04:25 Lymph # (Auto) 1.07 K/uL (1.2-3.4) L 02/23/21 04:25 [place] # (Auto) 0.62 K/uL (0.11-0.59) H 02/23/21 04:25 Eos # (Auto) 0.23 K/uL (0-0.5) 02/23/21 04:25 Baso # (Auto) 0.02 K/uL (0-0.2) 02/23/21 04:25 Immature Gran # (Auto) 0.02 K/uL (0.00-0.02) 02/23/21 04:25 Sodium 141 mmol/L (136-145) 02/23/21 04:25 Potassium 4.5 mmol/L (3.5-5.1) 02/23/21 04:25 Chloride 109 mmol/L (98-107) H 02/23/21 04:25 Carbon Dioxide 27 mmol/L (21-32) 02/23/21 04:25 Anion Gap 5.0 (3-11) 02/23/21 04:25 BUN 12 mg/dl (7-18) 02/23/21 04:25 Creatinine 0.75 mg/dl (0.6-1.4) 02/23/21 04:25 Est Cr Clr Drug Dosing 126.0 ml/min 02/23/21 04:25 Est GFR ( Amer) 118.9 02/23/21 04:25 Est GFR (Non-Af Amer) 102.5 02/23/21 04:25 BUN/Creatinine Ratio 16.6 (10-20) 02/23/21 04:25 Glucose 127 mg/dl (70-99) H 02/23/21 04:25 Calcium 8.5 mg/dl (8.5-10.1) 02/23/21 04:25 Total Bilirubin 0.6 mg/dl (0.2-1) 02/23/21 04:25 AST 60 U/L (15-37) H 02/23/21 04:25 ALT 64 U/L (12-78) 02/23/21 04:25 Alkaline Phosphatase 69 U/L (45-117) 02/23/21 04:25 Total Protein 7.1 gm/dl (6.4-8.2) 02/23/21 04:25 Albumin 3.4 gm/dl (3.4-5.0) 02/23/21 04:25 Globulin 3.7 gm/dl (2.5-4.0) 02/23/21 04:25 Albumin/Globulin Ratio 0.9 (0.9-2) 02/23/21 04:25 Lipase 103 U/L (73-393) 02/23/21 04:25 COVID-19 Eval Order Covid19 [facility] 02/23/21 05:29 SARS-CoV-2, RNA, NAAT NEGATIVE (NEGATIVE) 02/23/21 05:29 Diagnostic Findings [facility] Patient: EMILIA GRIDER (Male) : 65 Status: ER Date: 02/23/21 05:09 Room #: History: patient fell through steps three nights ago right rib pain, bruising, patient coughed today and heard a pop on right side Slices: [phone] Priors: Tech: Natalee Bush @ [phone] Exams: CT CHEST With Contrast Contrast: IV Amt: 88ml of optiray 300 Accession Numbers: [id number] Preliminary Findings Only See Final Report For Complete Findings ADDENDUM - Added by Ryan Sanz MD on 02/23/2021 5:26 AM (-07:00) There is acute right 11th rib fracture. CT CHEST With Contrast: Moderate amount of fluid in the thoracic esophagus is suggestive of gastroesophageal reflux. Small hiatus hernia. Basilar discoid atelectasis. No definite evidence of right rib fracture Radiologist: Ryan Sanz MD Study ready at 05:16 and initial results transmitted at 05:22 *This report constitutes a preliminary interpretation only. Non-acute findings felt to be unrelated to the clinical presentation may not be discussed in this report. The study will be interpreted and a final report will be generated by the local Radiologist the following shift. To reach the hospital radiology department call [phone]. If a discrepancy is found between the preliminary and final interpretations of this study, please notify us via our Client Portal at [email or web address] can also fax this report with a description of the discrepancy, or include the final report, to our daytime fax number [phone].If faxing, please indicate the severity of discrepancy using one of the following categories: [ ] 1 - Agree/Informational [ ] 2 - Unlikely to Affect Management [ ] 3 - Possible Eventual Change of Management [ ] 4 - Probable Immediate Change of Management For all other patient related information, please fax us at [phone]. [id number] [facility] Patient: EMILIA GRIDER (Male) : 65 Status: ER Date: 02/23/21 05:10 Room #: History: patient fell through steps three nights ago right rib pain, bruising, patient coughed today and heard a pop on right side Slices: [phone] Priors: Tech: Natalee Bush @ [phone] Exams: CT ABDOMEN & PELVIS With Contrast Contrast: IV Amt: 88ml of optiray 300 Accession Numbers: [id number] Preliminary Findings Only See Final Report For Complete Findings CT ABDOMEN & PELVIS With Contrast: Impression: There is acute fracture of the right 11th rib. Bilateral basilar discoid atelectasis. There is fluid distention of the distal small bowel loops. The differential diagnosis includes partial distal small bowel obstruction versus ileus Mild colonic distention with air and fecal matter. Radiologist: Ryan Sanz MD Study ready at 05:16 and initial results transmitted at 05:25 *This report constitutes a preliminary interpretation only. Non-acute findings felt to be unrelated to the clinical presentation may not be discussed in this report. The study will be interpreted and a final report will be generated by the local Radiologist the following shift. To reach the [facility] radiology d epartment call [phone]. If a discrepancy is found between the preliminary and final interpretations of this study, please notify us via our Client Portal at [email or web address] can also fax this report with a description of the discrepancy, or include the final report, to our daytime fax number [phone].If faxing, please indicate the severity of discrepancy using one of the following categories: [ ] 1 - Agree/Informational [ ] 2 - Unlikely to Affect Management [ ] 3 - Possible Eventual Change of Management [ ] 4 - Probable Immediate Change of Management For all other patient related information, please fax us at [phone]. [id number] Code Status & VTE Plan Code Status Full code VTE Prophylaxis Plan VTE Prophylaxis will be ordered: Yes PG Care Time/CCT Total # of Minutes Spent Total Time Spent with Patient: Total time spent is greater than 50% in coordination of care (as documented) at patient's floor/unit and/or counseling patient: Coding Level of Care Code 19501 Initial Inpt Care Lvl 3 Diagnoses Ileus K56.7 Intractable nausea and vomiting R11.2 At risk for aspiration Z91.89 Hiatal hernia with GERD K21.9; K44.9 Closed rib fracture S22.39XA Right rib fracture S22.31XA Depression with anxiety F41.8
--- NOTE | 2021-02-23 06:27 | XRay Report ---
XR pelvis 1-2V routine CLINICAL HISTORY: right hip pain COMPARISON: CT of the abdomen and pelvis February 23, 2021 FINDINGS: Contrast within the bladder from recent contrast-enhanced CT is noted. There is no acute f racture within the pelvis or the hips. Pelvic calcifications represent phleboliths. IMPRESSION: No acute fracture within the pelvis or hips. ACT 112: Negative or not required by law. Electronically signed by: Esteban Segura M.D. 02/23/2021 6:25 AM
--- NOTE | 2021-02-23 06:28 | XRay Report ---
XR femur RT 2V routine CLINICAL HISTORY: right leg injury COMPARISON: CT of the abdomen and pelvis performed earlier today. FINDINGS: No acute fracture within the right femur is noted. There is no right knee joint effusion. There is no osseous lesion within the right femur. There is contrast within the bladder from recent c ontrast-enhanced CT. IMPRESSION: No acute fracture within the right femur. ACT 112: Negative or not required by law. Electronically signed by: Esteban Segura M.D. 02/23/2021 6:26 AM
--- NOTE | 2021-02-23 06:37 | CT Scan Report ---
CT OF THE CHEST WITH IV CONTRAST CLINICAL HISTORY: trauma, right rib/abd pain COMPARISON STUDY: Chest radiograph October 29, 2016. TECHNIQUE: Following IV administration of 88 mL of Optiray, helical axial images of the chest were o btained. Sagittal and coronal reconstructions were viewed as well as maximal intensity projections o n an independent 3-D workstation. Automated exposure control was utilized for the study. A dose low ering technique was utilized adhering to the principles of ALARA. FINDINGS: There is no evidence for traumatic injury to the thoracic aorta. Small hiatal hernia is no deana. Esophagus is mildly fluid-filled. Size of the heart is normal. No pericardial effusion. There is no pneumothorax. Trace right pleural effusion is noted. Subpleural opacities reflect atelectasis. No te is made of several acute right-sided rib fractures which are better depicted on the CT of the abdo men and pelvis. These include an acute minimally displaced fracture of the anterior right ninth rib a s well as an acute mildly displaced fracture of the right 11th rib. There is an acute nondisplaced fr acture of the anterior right seventh rib. IMPRESSION: 1. No evidence for traumatic injury to the thoracic aorta. 2. Acute mildly displaced fracture of the right 11th rib, minimally displaced fracture of the anterio r right ninth rib and nondisplaced fracture of the anterior right seventh rib, better depicted on the CT of the abdomen and pelvis. No pneumothorax. Trace right pleural effusion. 3. Small hiatal hernia with fluid-filled esophagus which may reflect reflux. ACT 112: Negative or not required by law. Electronically signed by: Esteban Segura M.D. 02/23/2021 6:35 AM
[2021-02-23] MEDS ORDERED: FAMOTIDINE 20MG/5ML IV PUSH IV ONE (06:44)
[2021-02-23] MEDS: FAMOTIDINE 20 MG in SYRINGE 3 ML IV SCH ×2 (06:46→20:53)
--- NOTE | 2021-02-23 08:41 | CT Scan Report ---
CT abd pelvis IV con only CLINICAL HISTORY: Abdominal pain. Trauma. COMPARISON STUDY: None. TECHNIQUE: Patient was scanned in a dynamic helical fashion during intravenous administration of 88 c c of Optiray 300 A dose lowering technique was utilized adhering to the principles of ALARA. CT DOSE: 1201.64 mGy.cm FINDINGS: Lower chest: There is a small hiatal hernia. There is a fluid-filled esophagus. There are basilar ate lectatic changes. There is a trace right pleural effusion.1 Liver: The contrast-enhanced liver is normal in size, contour, and attenuation. There is no intrahepa tic biliary ductal dilatation. The hepatic veins and portal veins are patent. Gallbladder: Unremarkable. Spleen: Normal in size and attenuation. Pancreas: Unremarkable. Adrenal glands: Unremarkable. Kidneys: There is a 3 mm lower pole left renal calculus. No solid renal masses are visualized. There is no hydronephrosis. Bowel: There is a small bowel feces sign. There are dilated fluid-filled small bowel loops. A discret e transition zone is not clearly visualized. Diagnostic considerations include partial small bowel ob struction versus ileus. The appendix appears normal. There is no acute diverticulitis. There is moder ate right colonic stool Peritoneum: There is no intraperitoneal free air or abdominal ascites. Vasculature: The abdominal aorta is normal in course and caliber. Adenopathy: None. Pelvic viscera: The bladder, and pelvic viscera are unremarkable. Skeletal structures: There are acute fractures the right ninth and 11th ribs. There is an old deformi ty of the left 12th rib. IMPRESSION: 1. No evidence of acute intra-abdominal or pelvic injury. 2. Acute fractures of the right ninth and 11th ribs. 3. Small hiatal hernia with a fluid-filled esophagus 4. Mild distended FLUID-FILLED small bowel loops with air-fluid levels and a small bowel feces sign. Diagnostic considerations include ileus versus partial small bowel obstruction. Clinical and/or imagi ng follow-up are recommended. ACT 112: Negative or not required by law. Electronically signed by: Victorino Martin M.D. 02/23/2021 8:40 AM
[2021-02-23] MEDS ORDERED: PIPERACILL/TAZOBAC CONSULT ACTIVE PRN (08:50)
[2021-02-23] MEDS ORDERED: ONDANSETRON INJ 2 MG/ML 2 ML VIAL IV PRN (08:50)
[2021-02-23] MEDS ORDERED: PIPERACILLIN/TAZOBACTAM 3.375 GM in DEXTROSE 5% 100 ML IV ONE (09:15)
--- NOTE | 2021-02-23 09:19 | Electrocardiogram Report ---
Test Reason : Blood Pressure : / mmHG Vent. Rate : 086 BPM Atrial Rate : 086 BPM P-R Int : 136 ms QRS Dur : 084 ms QT Int : 382 ms P-R-T Axes : 078 033 019 degrees QTc Int : 457 ms Poor data quality, interpretation may be adversely affected Normal sinus rhythm Normal ECG When compared with ECG of 29-OCT-2016 08:41, Vent. rate has increased BY 28 BPM Otherwise no significant change Confirmed by Dave Mcgraw ([id number]) on 02/23/2021 9:18:39 AM Referred By: REFERRED SELF Confirmed By:Dave Mcgraw
--- NOTE | 2021-02-23 09:23 | Surgery Consultation ---
Date of Consultation February 23, 2021 Assessment & Plan (1) Ileus: Nausea and vomiting have resolved. Consider NG if he has recurrent vomiting. No previous surgery, likely ileus vs SBO. Supervising Physician Co-Signing Physician Notes Patient seen and examined, labs and image reviewed, agree with above. 56-year-old male with no prior abdominal surgical history status post fall few days ago presented with rib pain and abdominal pain. CT showed a fractured rib, but also suggested possible ileus versus small bowel obstruction. He is passing gas and had normal bowel yesterday. On exam he is afebrile stable vitals. He does splint with deep breaths. His abdomen is soft, nontender, slightly distended. Positive bowel sounds. I personally reviewed the CT scan and agree with interpretation of a likely ileus, it may be related to constipation as there is significant bowel stool in the right colon and distal ileum. At this point we would recommend suppository along with a stool softener. He can start on clear liquids. Surgery will continue to follow. History of Present Illness Attending Physician: Oscar Burr MD History of Present Illness 56 y/o male fell through some stairs a few days ago injuring his right side. Last night he felt a "pop" and N/V and difficulty catching his breath. Admitted this morning for rib fractures and CT showing SBO vs ileus. Was taking ibuprofen for pain. No previous abdominal surgery. Allergies Allergy/AdvReac Type Severity Reaction Status Date / Time cyclobenzaprine AdvReac Unknown RASH ON Verified 11/08/16 09:53 FACE Home Medications Medication Instructions Recorded Confirmed Type Ibuprofen (MOTRIN) 600 mg PO Q6H PRN #0 tab 11/08/16 02/23/21 History aripiprazole [Abilify] 10 mg PO DAILY 02/23/21 02/23/21 History escitalopram oxalate [Lexapro] 10 mg PO DAILY 02/23/21 02/23/21 History Patient History Medical History Depression with anxiety No significant active problems Surgical History History of back surgery Social History Smoking Status: Never smoker Second Hand Exposure: Yes; Hx Alcohol Use: Yes Alcohol type: beer Hx Substance Use: Yes Last Used Substance: Unknown Preferred Language: Kittitian Communication Ability: Effective Contract Designer Required: No Beliefs That Will Affect Care: None Current Living Situation: Other Feels Safe at Home: Yes Assistive Devices: Glasses Review of Systems Constitutional: no fever and no chills Respiratory: + dyspnea, + pain on inspiration and + pain with cough Gastrointestinal: + nausea and + vomiting; no abdominal pain Physical Exam Constitutional: WD/WN, vitals as above Respiratory: normal respiratory effort Gastrointestinal (Abdomen): Inspection/Auscultation: + abdomen distended (minimal) Percussion/Palpation: + abdomen tender (minimal) and abdomen soft Results & Data ([facility]) Vital Signs (Past 12 Hours) Vital Signs Temp Pulse Resp BP Pulse Ox 02/23/21 07:30 92 02/23/21 07:13 94 02/23/21 07:00 80 17 130/77 96 02/23/21 06:31 78 17 95 02/23/21 06:30 77 17 129/76 95 02/23/21 06:01 77 18 94 02/23/21 06:00 80 22 143/95 H 94 02/23/21 05:31 80 22 94 02/23/21 05:30 87 24 134/100 94 02/23/21 05:17 89 L 02/23/21 05:16 86 21 89 L 02/23/21 05:15 83 19 131/91 89 L 02/23/21 05:14 24 02/23/21 04:50 84 23 97 02/23/21 04:40 82 19 96 02/23/21 04:30 83 26 H 97 02/23/21 04:22 36.7 C 88 20 147/98 H 88 L 02/23/21 04:20 86 24 96 02/23/21 04:18 85 24 96 02/23/21 04:13 88 26 H 147/98 H 96 PG Care Time/CCT Total # of Minutes Spent Total Time Spent with Patient: Total time spent is greater than 50% in coordination of care (as documented) at patient's floor/unit and/or counseling patient: Coding Level of Care Code 36598 Inpt Consult Level 2 Diagnoses Ileus K56.7
[2021-02-23 09:29] LABS: iSTAT Creatinine 0.7 mg/dl (0.6-1.3); iSTAT Hemoglobin 13.3 g/dl (14.0-18.0); iSTAT Ionized Calcium 1.21 mmol/l (1.12-1.32); iSTAT Potassium 4.4 mmol/L (3.3-5.0)
[2021-02-23] MEDS: NSS + 20MEQ KCL 20 MEQ/1,000 ML BAG IV SCH (10:09)
--- NOTE | 2021-02-23 10:27 | Hospitalist Progress Note ---
Date of Service February 23, 2021 Assessment & Plan (1) Ileus: Patient reports to ED staff taking oral morphine, which likely caused his symptoms Ileus/intractable nausea vomiting/hiatal hernia with GERD/at risk for aspiration with fluid in esophagus- NPO except ice chips and meds Zofran 4 mg IV every 6 hours as needed Famotidine 20 mg IV every 12 hours Zosyn 3.375 mg IV every 8 hours NSS + KCl 20 mEq at 125 mL's per hour Relistor x1 dose Consult general surgery (2) Intractable nausea and vomiting: See above (3) At risk for aspiration: See above (4) Hiatal hernia with GERD: See above (5) Closed rib fracture: Closed right 11th rib fracture- Status post mechanical fall Lidoderm patch during the day, Voltaren gel at nighttime scheduled Tylenol occasional as needed morphine (6) Right rib fracture: See above (7) Depression with anxiety: Hold Zyprexa and Lexapro while n.p.o. Admission and Anticipated Discharge Date Admission Date: February 23, 2021 Subjective Patient was seen in the afternoon he still having some discomfort about his side and abdomen. Is not had a bowel movement yet. He said no additional nausea or vomiting. Results & Data Results & Data ([facility]) Vital Signs (Past 12 Hours) Vital Signs Temp Pulse Resp BP Pulse Ox 02/23/21 07:30 92 02/23/21 07:13 94 02/23/21 07:00 80 17 130/77 96 02/23/21 06:31 78 17 95 02/23/21 06:30 77 17 129/76 95 02/23/21 06:01 77 18 94 02/23/21 06:00 80 22 143/95 H 94 02/23/21 05:31 80 22 94 02/23/21 05:30 87 24 134/100 94 02/23/21 05:17 89 L 02/23/21 05:16 86 21 89 L 02/23/21 05:15 83 19 131/91 89 L 02/23/21 05:14 24 02/23/21 04:50 84 23 97 02/23/21 04:40 82 19 96 02/23/21 04:30 83 26 H 97 02/23/21 04:22 98.1 F 88 20 147/98 H 88 L 02/23/21 04:20 86 24 96 02/23/21 04:18 85 24 96 02/23/21 04:13 88 26 H 147/98 H 96 PG Care Time/CCT Total # of Minutes Spent Total Time Spent with Patient: Total time spent is greater than 50% in coordination of care (as documented) at patient's floor/unit and/or counseling patient: Coding Level of Care Code None Diagnoses Ileus K56.7 Intractable nausea and vomiting R11.2 At risk for aspiration Z91.89 Hiatal hernia with GERD K21.9; K44.9 Closed rib fracture S22.39XA Right rib fracture S22.31XA Depression with anxiety F41.8
[2021-02-23 13:17] LABS: Appearance Urine Clear (Clear); Bilirubin Urine Negative (Negative); Blood Urine Negative (Negative); Color Urine Yellow; Glucose Urine UA Negative (Negative); Ketones Urine Negative (Negative); Leukocyte Esterase Urine Negative (Negative); Nitrite Urine Negative (Negative); Protein Urine Negative (Negative); Specific Gravity Urine 1.037 (1.000-1.030); Urobilinogen Urine Negative (Negative)
[2021-02-23] MEDS ORDERED: LIDOCAINE 5% 1 PATCH TD SCH ×2 (14:15→21:00)
[2021-02-23] MEDS: PIPERACILLIN/TAZOBACTAM 3.375 GM in DEXTROSE 5% 100 ML IV SCH ×2 (14:24→20:53)
[2021-02-23] MEDS ORDERED: METHYLNALTREXONE BROMIDE 12 MG/0.6 ML VIAL SQ ONE (15:15)
[2021-02-23] MEDS: MoRPHine SULFATE 2 MG/ML CARP IV PRN (15:52)
[2021-02-23] MEDS: ACETAMINOPHEN 500 MG TAB PO SCH (20:52)
[2021-02-24] MEDS: NSS + 20MEQ KCL 20 MEQ/1,000 ML BAG IV SCH ×2 (02:44→03:18)
[2021-02-24 06:27] LABS: Basophils # (auto) 0.02 K/uL (0-0.2); Basophils % (auto) 0.4 %; Eosinophils # (auto) 0.35 K/uL (0-0.5); Eosinophils % (auto) 7.2 %; Hemoglobin 12.7 g/dL (14.0-18.0); Immature Granulocytes # (auto) 0.01 K/uL (0.00-0.02); Immature Granulocytes % (auto) 0.2 %; Lymphocytes # (auto) 1.28 K/uL (1.2-3.4); Lymphocytes % (auto) 26.2 %; Mean Corpuscular Hemoglobin 33.1 pg (25-34); Mean Corpuscular Hgb Conc 34.3 g/dL (32-36); Mean Corpuscular Volume 96.4 fL (80-100); Mean Platelet Volume 8.9 fL (7.4-10.4); Monocytes # (auto) 0.49 K/uL (0.11-0.59); Neutrophils # (auto) 2.73 K/uL (1.4-6.5); Platelet Count 255 K/uL (130-400); RDW Coefficient of Variation 13.4 % (11.5-14.5); RDW Standard Deviation 46.6 fL (36.4-46.3); Red Blood Count 3.84 M/uL (4.7-6.1); White Blood Count 4.88 K/uL (4.8-10.8)
[2021-02-24] MEDS: FAMOTIDINE 20 MG in SYRINGE 3 ML IV SCH (06:34)
[2021-02-24] MEDS: PIPERACILLIN/TAZOBACTAM 3.375 GM in DEXTROSE 5% 100 ML IV SCH (06:34)
[2021-02-24 06:57] LABS: Albumin Level 2.8 gm/dl (3.4-5.0); Calcium 8.3 mg/dl (8.5-10.1); Creatinine Clr Calc Pharmacy 115.1 ml/min; Est GFR (African American) 119.5; Est GFR (Non-African American) 103.1; Magnesium 2.4 mg/dl (1.8-2.4); Potassium 4.3 mmol/L (3.5-5.1)
[2021-02-24 07:00] LABS: Albumin Globulin Ratio 0.8 (0.9-2); Bilirubin,Total 0.5 mg/dl (0.2-1); Globulin 3.3 gm/dl (2.5-4.0); Total Protein 6.1 gm/dl (6.4-8.2)
[2021-02-24] MEDS: MoRPHine SULFATE 2 MG/ML CARP IV PRN (07:35)
[2021-02-24] MEDS ORDERED: MoRPHine SULFATE 4 MG/ML 1 ML CARP\\VIAL IV PRN (07:50)
--- NOTE | 2021-02-24 07:53 | Surgery Progress Note ---
Date of Service February 24, 2021 Assessment & Plan (1) Ileus: add Toradol can begin diet, full liquids for now Admission and Anticipated Discharge Date Admission Date: February 23, 2021 Subjective hungry, had BM and some flatus Physical Exam Gastrointestinal (Abdomen): Percussion/Palpation: abdomen soft; abdomen nontender Results & Data ([facility]) Vital Signs (Past 12 Hours) Vital Signs Temp Pulse Resp BP Pulse Ox 02/24/21 07:47 36.6 C 66 16 130/79 94 02/23/21 23:34 36.7 C 61 16 123/78 95 PG Care Time/CCT Total # of Minutes Spent Total Time Spent with Patient: Total time spent is greater than 50% in coordination of care (as documented) at patient's floor/unit and/or counseling patient: Coding Level of Care Code 57853 Subseq Hosp Care Lvl 1 Diagnoses Ileus K56.7
[2021-02-24] MEDS ORDERED: KETOROLAC 30 MG/ML VIAL IV SCH (08:00)
[2021-02-24] MEDS: ACETAMINOPHEN 500 MG TAB PO SCH (08:35)
[2021-02-24] MEDS ORDERED: oxyCODONE HCL IR 5 MG TAB (IMMEDIATE RELEASE) PO PRN (09:12)
--- NOTE | 2021-02-24 15:27 | Discharge Summary ---
Date of Service February 24, 2021 Admission HPI Per Admitting Provider The patient is a 56-year-old male with history of depression with anxiety, left lumbar radiculitis, lumbar generative disc disease with radiculopathy status post surgery x2, who presents with the above symptoms. He reportedly told ED ROGERS that he was taking oral morphine. Principal Diagnosis Fractures of the seventh ninth and 11th ribs on the right Intractable chest pain Opiate induced obstipation resolved Discharge Exam The patient appeared well nourished and normally developed. Vital signs as documented. Head exam is normocephalic atraumatic Neck is without JVD, thyromegaly, or carotid bruits. Lungs are clear to auscultation, no focal loss of breath sounds Cardiac exam, Rhythm is regular.. No murmurs, rubs or gallops. Abdominal exam reveals normal bowel sounds, soft non tender, no masses Extremities are nonedematous and both pedal pulses are present Neurologic exam is alert and oriented, no focal loss of strength or sensation Skin is without bruises or rashes Psychologically is without concerns for anxiety or depression Discharge Data Allergies Allergy/AdvReac Type Severity Reaction Status Date / Time cyclobenzaprine AdvReac Unknown RASH ON Verified 11/08/16 09:53 FACE Consultations 02/23/21 06:30 ED Decision to Admit Stat 02/23/21 08:50 Consult General Surgery Routine Ordered Studies 02/23/21 04:33 CT chest diagnostic w con Urgent 02/23/21 04:34 CT abd pelvis IV con only Urgent Hospital Course (1) Ileus: Patient reports to ED staff taking oral morphine, which likely caused his symptoms no general surgical intervention recommended pt did have 2 bowel movements after Relistor will be home on a high fiber diet and pain control with tylenol, lidoderm and prn oxycodone (2) Intractable nausea and vomiting: See above (3) At risk for aspiration: See above (4) Hiatal hernia with GERD: See above (5) Closed rib fracture: Closed right 7,9 11th rib fracture- Status post mechanical fall Lidoderm patch during the day, scheduled Tylenol occasional as needed oxycodone (6) Right rib fracture: See above (7) Depression with anxiety: Zyprexa and Lexapro w Total Time Total Time Spent Total Time Spent (In Minutes): It required greater than 30 minutes to prepare this patient for discharge Discharge Plan Discharge Items Patient Disposition: Home - Self-Care Reason For Visit: ILEUS, NAUSEA AND VOMITING Discharge Diagnosis: rib pain from fracture constipation from pain medication Activity: Per Instructions section Non-emergency contact: Primary Care Provider Call non-emergency contact if: you have any medication questions and your symptoms worsen Follow-up/Referrals: PCP,NO [Primary Care Provider] - Diet: Regular Diet Comment: good fiber, consider prunes/dates, or fiber supplement Addtl Attending Provider Instructions: Constipation is an unfortunate side effect suffered by just about everyone who undergoes opioid treatment. While laxatives and other medications may be necessary for severe opioid-induced constipation, changing your eating (and drinking) habits can help too. Please only use ibuprofen occasionally use Tylenol scheduled topical lidocaine patch oxycodone as needed for pain your ribs will hurt for 4-6 weeks Pending Studies at Discharge: No Stand-Alone Forms: My [facility] [place], Opioid Pain Management, Smoking Cessation Medications and DC Order Prescriptions: New acetaminophen 500 mg Tablet 1,000 mg PO TID Qty: 90 RF: 0 lidocaine 5 % Adhesive Patch,Medicated 1 patch transdermal HS Qty: 10 RF: 0 oxycodone 5 mg tablet 5 - 10 mg PO TID PRN (Reason: pain) Qty: 20 RF: 0 Continued Ibuprofen (MOTRIN) 600 MG tablet 600 mg PO Q6H PRN (Reason: Pain) Qty: 0 RF: 0 escitalopram oxalate [Lexapro] 10 mg tablet 10 mg PO DAILY RF: 0 aripiprazole [Abilify] 10 mg Tablet 10 mg PO DAILY RF: 0 Discharge Orders: Discharge Order (Routine); Ordered 02/24/21 Ordered By: Tonny Kwok/Other Patient Handouts: Rib Fracture (Broken Rib) Admission Data Admit Date/Time: 02/23/21 06:12 Attending Provider: Tonny Gibbons Admit Provider: Oscar Burr Primary Care Provider: PCP,NO Other Providers: Oscar Burr ; Karson Buenrostro Other Interventions: Discharge Summary Assessment (RN) Last Done: 02/24/21 12:27 Coding Level of Care Code D/C Day Management >30 mins Diagnoses Ileus K56.7 Intractable nausea and vomiting R11.2 At risk for aspiration Z91.89 Hiatal hernia with GERD K21.9; K44.9 Closed rib fracture S22.39XA Right rib fracture S22.31XA Depression with anxiety F41.8
== END 2021-02-24 12:47 | disposition home or self-care (01) | DRG 389 ==
LOC: ED 04:11 → SUATTDRO 06:12 → 3W 06:12 → INTOOBSV 06:12 → 3W 08:17

== ENCOUNTER 2021-04-24 11:25 | Inpatient (IN) ==
--- NOTE | 2021-04-24 12:05 | XRay Report ---
XR chest 1V portable CLINICAL HISTORY: Atypical chest pain COMPARISON STUDY: 10/29/2016 FINDINGS: The cardiac and mediastinal contours are normal. There is no evidence of focal pulmonary co nsolidation. There is no evidence of failure. No pleural effusions are visualized.[Degenerative guzman es are present within the left AC joint IMPRESSION: No active disease in the chest. ACT 112: Negative or not required by law. Electronically signed by: Victorino Martin M.D. 04/24/2021 12:04 PM
[2021-04-24 12:06] LABS: Partial Thromboplastin Ratio 0.8; Partial Thromboplastin Time 21.5 Seconds (21.0-31.0)
[2021-04-24 12:09] LABS: Hematocrit (blood only) 18.3 % (42-52); Hemoglobin 6.4 g/dL (14.0-18.0); Mean Corpuscular Volume 94.3 fL (80-100); Mean Platelet Volume 8.7 fL (7.4-10.4); Platelet Count 328 K/uL (130-400); RDW Coefficient of Variation 12.7 % (11.5-14.5); Red Blood Count 1.94 M/uL (4.7-6.1); White Blood Count 9.57 K/uL (4.8-10.8)
[2021-04-24] MEDS ORDERED: SODIUM CHLORIDE 0.9% 250 ML IV PRN ×2 (12:12→17:32)
[2021-04-24 12:18] LABS: Alanine Aminotransferase 60 U/L (12-78); Albumin Level 2.9 gm/dl (3.4-5.0); Aspartate Aminotransferase 62 U/L (15-37); BUN Creatinine Ratio 24.7 (10-20); Blood Urea Nitrogen 19 mg/dl (7-18); Calcium 7.9 mg/dl (8.5-10.1); Carbon Dioxide 30 mmol/L (21-32); Chloride 96 mmol/L (98-107); Creatinine Clr Calc Pharmacy 117.6 ml/min; Est GFR (African American) 117.6 ml/min; Est GFR (Non-African American) 101.4 ml/min; Glucose 130 mg/dl (70-99); Lipase 120 U/L (73-393); Potassium 3.8 mmol/L (3.5-5.1); Sodium 130 mmol/L (136-145)
[2021-04-24 12:23] LABS: Albumin Globulin Ratio 1.1 (0.9-2); Alkaline Phosphatase 60 U/L (45-117); Bilirubin,Total 0.3 mg/dl (0.2-1); Globulin 2.7 gm/dl (2.5-4.0); Total Protein 5.6 gm/dl (6.4-8.2); Troponin I < 0.015 ng/ml (0-0.045)
[2021-04-24] MEDS ORDERED: FAMOTIDINE 20MG/5ML IV PUSH IV STA (12:37)
[2021-04-24] MEDS ORDERED: PANTOprazole 40 MG in SYRINGE 0 ML IV ONE ×2 (12:37→15:12)
[2021-04-24 12:40] LABS: Prothrombin Time 10.3 Seconds (9.0-12.0)
[2021-04-24 12:44] LABS: Basophils # (auto) 0.01 K/uL (0-0.2); Basophils % (auto) 0.1 %; Eosinophils # (auto) 0.06 K/uL (0-0.5); Eosinophils % (auto) 0.6 %; Immature Granulocytes # (auto) 0.04 K/uL (0.00-0.02); Immature Granulocytes % (auto) 0.4 %; Lymphocytes # (auto) 2.09 K/uL (1.2-3.4); Lymphocytes % (auto) 21.8 %; Monocytes % (auto) 7.3 %; Neutrophils # (auto) 6.67 K/uL (1.4-6.5); Neutrophils % (auto) 69.8 %; Polychromasia 1+
[2021-04-24] MEDS ORDERED: SODIUM CHLORIDE 0.9% 1000ML 1,000 ML IV ONE (12:48)
[2021-04-24] MEDS ORDERED: THIAMINE HCL 200 MG in SODIUM CHLORIDE 0.9% 50 ML IV STA (12:48)
--- NOTE | 2021-04-24 12:48 | Emergency Department Note ---
Impression & Plan Acute upper gastrointestinal bleeding, Chest pain, Anemia, Near syncope ED Provider Note NAME: EMILIA GRIDER AGE: 56 SEX: M : 1965 ARRIVES VIA: Walk-In INFORMANT: Patient, ED PROVIDER(S): Mark Musa DO CHIEF COMPLAINT: Dizziness HPI: The patient is a 56-year-old male who presented to the emergency department for an evaluation of dizziness and lightheadedness. The patient states that he has had ongoing symptoms over the course of the last few days. He was seen in our facility recently after a fall and had a rib fracture. He denies having any headache. He denies any recent falls. He does complain of some lower abdominal pain. He also complains of chest pain and feeling as though he might pass out. He does complain of dark stool and some rectal bleeding. The patient has not been seen by his family doctor for the symptoms. The patient states his symptoms are moderate. He denies having any swelling in his legs. The patient has been taking NSAIDs for his rib injury. He is also admitting to significant alcohol use. ROS: See above HPI for pertinent positives & negatives. A total of 10 systems reviewed and were otherwise negative. PAST MEDICAL HISTORY: See Below PAST SURGICAL HISTORY: See Below FAMILY HISTORY: See Below SOCIAL HISTORY: See Below HOME MEDICATIONS: See Below ALLERGIES: See Below VITALS: See Below PHYSICAL EXAMINATION: GENERAL: The patient is awake and alert. He is somewhat anxious appearing. He appears to be uncomfortable. EYES: The conjunctivae are clear. The pupils are round and reactive. EARS, NOSE, MOUTH AND THROAT: The nose is without any evidence of any deformity.. NECK: The neck is nontender and supple. RESPIRATORY: Normal respiratory effort is noted there is no evidence of wheezing rhonchi or rales CARDIOVASCULAR: Regular rate and rhythm noted there no murmurs rubs or gallops normal S1 normal S2. GASTROINTESTINAL: The abdomen is soft and mildly distended. There is lower tenderness to palpation but no guarding or rigidity. Rectal exam revealed dark stool which was strongly heme positive. MUSCULOSKELETAL/EXTREMITIES: There is no evidence of gross deformity full range of motion is noted in the hips and shoulders. SKIN: There is no obvious evidence of any rash. There are no petechiae, pallor or cyanosis noted. NEUROLOGIC: Patient is awake alert and oriented x3 strength is symmetric patellar reflexes are 2+ bilaterally MEDICAL DECISION MAKING: The patient is a 56-year-old male who presented to the emergency department for an evaluation of chest pain. The patient was experiencing chest pain as well as near syncope symptoms. The patient states he became very dizzy upon standing. The patient did admit to drinking alcohol and having an alcohol problem. He was found to have blood in his stool. The patient was treated with blood transfusion in the emergency department. He was also given Protonix and Pepcid. I discussed the patient's laboratory and radiographic studies with him. He was reevaluated multiple times. I discussed his case with the on-call [facility]. They have agreed to evaluate the patient in the emergency department for further management and disposition. I did consent the patient for blood transfusion. Triage Nursing notes reviewed. Prior medical records reviewed Vital Signs: reviewed and remarkable for hypertension Differential diagnosis: Infection, dehydration, metabolic abnormality, hypo/hyperglycemia, electrolyte disturbance, anemia, hypoxia, cardiac sources, intracerebral event, toxicologic, neurologic, as well as other pathologies. ER treatment provided: See below Diagnostics interpreted by me: ECG: EKG was obtained in the emergency department. My interpretation is normal sinus rhythm at 93 bpm. There was no ectopy. There is no acute ST segment abnormalities noted. Cardiac Monitoring: An order was placed for continuous cardiac monitoring. The monitor shows a rate of 85 bpm sinus with rhythm. Laboratory studies: As stated above and show below. Imaging studies: See below Consultation(s): 1345: I discussed this case with Dr. Encinas who is on-call for the [facility] group. They have agreed to evaluate the patient in the emergency department for further management and disposition. ED COURSE: Procedures: none PDMP:reviewed and no issues Critical Care: I have personally spent greater than 60 minutes of critical care time in the direct management of this patient. This includes bedside care, interpretation of diagnostic studies, and testing, discussion with consultants, patient, and family members, and other required patient management activities. This 60 minutes is in excess of all separately billable procedures. Past Med/Surg History Medical History Acute blood loss anemia Alcohol abuse Depression with anxiety GI bleed Hiatal hernia with GERD No significant active problems Prolonged QT interval Syncope Surgical History History of back surgery Family History Other Family history non-contributory Social History Smoking Status: Never smoker Second Hand Exposure: Yes; Do You Dip or Chew Tobacco: Yes; Hx Alcohol Use: Yes Alcohol type: beer Alcohol type Comment: 4-5 beers daily Alcohol Intake Frequency: 4 or More x per/Week Alcohol Intake Frequency Comment: daily Hx Substance Use: No Preferred Language: Welsh Communication Ability: Effective Plaster Helper Required: No Beliefs That Will Affect Care: None Current Living Situation: Other Feels Safe at Home: Yes Assistive Devices: None Allergies Allergies Allergy/AdvReac Type Severity Reaction Status Date / Time cyclobenzaprine AdvReac Unknown RASH ON Verified 04/24/21 13:52 FACE Home Meds Home Medications Medication Instructions Recorded Confirmed aripiprazole [Abilify] 10 mg PO QAM 02/23/21 04/24/21 escitalopram oxalate [Lexapro] 10 mg PO QAM 02/23/21 04/24/21 multivitamin 1 tab PO QAM 04/24/21 04/24/21 Results & Data (ED) Vital Signs Vital Signs - 24 hr 04/24/21 11:26 04/24/21 11:35 04/24/21 12:00 Temperature 36.9 C Temperature Source Oral Pulse Rate 101 H 91 H 94 H Pulse Rate [Apical] Pulse Rate from SpO2 Sensor 94 H 94 H Pulse Rhythm [Apical] Pulse Strength [Apical] Respiratory Rate 20 23 14 Respiratory Effort / Characteristics Non-Labored Spontaneous Respiratory Depth Normal Respiratory Pattern Regular Blood Pressure 127/80 158/80 H 140/70 Blood Pressure [Left Arm] Blood Pressure Mean 95 106 93 Blood Pressure Mean [Left Arm] Blood Pressure Position [Left Arm] Pulse Oximetry 97 98 99 Oxygen Delivery Method Room Air Oxygen Flow Rate Sepsis Recent Fever Within 48 Hours No Sepsis New/Unexplained Change in Mental Status No Sepsis Action Taken by Nursing No Action Required 04/24/21 12:19 04/24/21 12:22 04/24/21 12:30 Temperature Temperature Source Pulse Rate 87 Pulse Rate [Apical] Pulse Rate from SpO2 Sensor 88 Pulse Rhythm [Apical] Pulse Strength [Apical] Respiratory Rate 19 Respiratory Effort / Characteristics Respiratory Depth Respiratory Pattern Blood Pressure 149/83 H Blood Pressure [Left Arm] Blood Pressure Mean 105 Blood Pressure Mean [Left Arm] Blood Pressure Position [Left Arm] Pulse Oximetry 99 99 Oxygen Delivery Method Room Air Room Air Oxygen Flow Rate Sepsis Recent Fever Within 48 Hours Sepsis New/Unexplained Change in Mental Status Sepsis Action Taken by Nursing 04/24/21 13:00 04/24/21 13:30 04/24/21 14:00 Temperature Temperature Source Pulse Rate 93 H 94 H 91 H Pulse Rate [Apical] Pulse Rate from SpO2 Sensor 93 H 94 H 90 Pulse Rhythm [Apical] Pulse Strength [Apical] Respiratory Rate 22 16 18 Respiratory Effort / Characteristics Respiratory Depth Respiratory Pattern Blood Pressure 157/81 H 146/87 H 138/90 Blood Pressure [Left Arm] Blood Pressure Mean 106 106 106 Blood Pressure Mean [Left Arm] Blood Pressure Position [Left Arm] Pulse Oximetry 98 97 100 Oxygen Delivery Method Oxygen Flow Rate Sepsis Recent Fever Within 48 Hours Sepsis New/Unexplained Change in Mental Status Sepsis Action Taken by Nursing 04/24/21 14:15 04/24/21 14:35 04/24/21 14:50 Temperature 37 C 37 C 37.1 C Temperature Source Oral Oral Oral Pulse Rate 92 H 85 84 Pulse Rate [Apical] Pulse Rate from SpO2 Sensor Pulse Rhythm [Apical] Pulse Strength [Apical] Respiratory Rate 16 16 16 Respiratory Effort / Characteristics Respiratory Depth Respiratory Pattern Blood Pressure 144/80 H 157/89 H 138/93 Blood Pressure [Left Arm] Blood Pressure Mean 101 111 108 Blood Pressure Mean [Left Arm] Blood Pressure Position [Left Arm] Pulse Oximetry 99 98 98 Oxygen Delivery Method Oxygen Flow Rate Sepsis Recent Fever Within 48 Hours Sepsis New/Unexplained Change in Mental Status Sepsis Action Taken by Nursing 04/24/21 15:20 04/24/21 15:48 04/24/21 16:36 Temperature 37 C 37.1 C 36.4 C L Temperature Source Oral Oral Temporal Artery Scan Pulse Rate 83 Pulse Rate [Apical] 84 Pulse Rate from SpO2 Sensor Pulse Rhythm [Apical] Regular Pulse Strength [Apical] Normal Respiratory Rate 16 18 16 Respiratory Effort / Characteristics Non-Labored Spontaneous Non-Labored Spontaneous Respiratory Depth Normal Normal Respiratory Pattern Regular Regular Blood Pressure 151/85 H Blood Pressure [Left Arm] 119/76 167/96 H Blood Pressure Mean 107 Blood Pressure Mean [Left Arm] 90 119 Blood Pressure Position [Left Arm] Lying Lying Pulse Oximetry 100 96 100 Oxygen Delivery Method Room Air Oxymask Oxygen Flow Rate 4 Sepsis Recent Fever Within 48 Hours Sepsis New/Unexplained Change in Mental Status Sepsis Action Taken by Nursing 04/24/21 16:45 04/24/21 16:55 04/24/21 17:05 Temperature Temperature Source Pulse Rate Pulse Rate [Apical] 86 82 81 Pulse Rate from SpO2 Sensor Pulse Rhythm [Apical] Regular Regular Regular Pulse Strength [Apical] Normal Normal Normal Respiratory Rate 20 20 18 Respiratory Effort / Characteristics Non-Labored Spontaneous Non-Labored Spontaneous Non-Labored Spontaneous Respiratory Depth Normal Normal Normal Respiratory Pattern Regular Regular Regular Blood Pressure Blood Pressure [Left Arm] 156/96 H 146/101 H 146/95 H Blood Pressure Mean Blood Pressure Mean [Left Arm] 116 116 112 Blood Pressure Position [Left Arm] Lying Lying Lying Pulse Oximetry 100 100 100 Oxygen Delivery Method Nasal Cannula Nasal Cannula Nasal Cannula Oxygen Flow Rate 4 4 4 Sepsis Recent Fever Within 48 Hours Sepsis New/Unexplained Change in Mental Status Sepsis Action Taken by Nursing 04/24/21 17:15 Temperature 37 C Temperature Source Temporal Artery Scan Pulse Rate Pulse Rate [Apical] 80 Pulse Rate from SpO2 Sensor Pulse Rhythm [Apical] Regular Pulse Strength [Apical] Normal Respiratory Rate 16 Respiratory Effort / Characteristics Non-Labored Spontaneous Respiratory Depth Normal Respiratory Pattern Regular Blood Pressure Blood Pressure [Left Arm] 147/95 H Blood Pressure Mean Blood Pressure Mean [Left Arm] 112 Blood Pressure Position [Left Arm] Lying Pulse Oximetry 100 Oxygen Delivery Method Nasal Cannula Oxygen Flow Rate 4 Sepsis Recent Fever Within 48 Hours Sepsis New/Unexplained Change in Mental Status Sepsis Action Taken by [facility] Medications Current Medication List: was personally reviewed by me Laboratory Data Attestation: I reviewed the patient's lab results. Result diagrams: 04/24/21 11:43 04/24/21 11:43 Lab Results 04/24/21 04/24/21 04/24/21 Range/Units 11:43 11:43 11:43 WBC 9.57 (4.8-10.8) K/uL RBC 1.94 L (4.7-6.1) M/uL Hgb 6.4 L* (14.0-18.0) g/dL Hct 18.3 L* (42-52) % MCV 94.3 (80-100) fL MCH 33.0 (25-34) pg MCHC 35.0 (32-36) g/dL RDW Std Deviation 43.0 (36.4-46.3) fL RDW Coeff of Nick 12.7 (11.5-14.5) % Plt Count 328 (130-400) K/uL MPV 8.7 (7.4-10.4) fL Immature Gran % (Auto) 0.4 % Neut % (Auto) 69.8 % Lymph % (Auto) 21.8 % Mower % (Auto) 7.3 % Eos % (Auto) 0.6 % Baso % (Auto) 0.1 % Neut # (Auto) 6.67 H (1.4-6.5) K/uL Lymph # (Auto) 2.09 (1.2-3.4) K/uL Mower # (Auto) 0.70 H (0.11-0.59) K/uL Eos # (Auto) 0.06 (0-0.5) K/uL Baso # (Auto) 0.01 (0-0.2) K/uL Immature Gran # (Auto) 0.04 H (0.00-0.02) K/uL Polychromasia 1+ PT (9.0-12.0) Seconds INR (0.9-1.1) APTT 21.5 (21.0-31.0) Seconds PTT Ratio 0.8 Sodium 130 L (136-145) mmol/L Potassium 3.8 (3.5-5.1) mmol/L Chloride 96 L (98-107) mmol/L Carbon Dioxide 30 (21-32) mmol/L Anion Gap 4.0 (3-11) BUN 19 H (7-18) mg/dl Creatinine 0.77 (0.6-1.4) mg/dl Est Cr Clr Drug Dosing 117.6 ml/min Est GFR ( Amer) 117.6 ml/min Est GFR (Non-Af Amer) 101.4 ml/min BUN/Creatinine Ratio 24.7 H (10-20) Glucose 130 H (70-99) mg/dl Calcium 7.9 L (8.5-10.1) mg/dl Magnesium (1.8-2.4) mg/dl Total Bilirubin 0.3 (0.2-1) mg/dl AST 62 H (15-37) U/L ALT 60 (12-78) U/L Alkaline Phosphatase 60 (45-117) U/L Troponin I < 0.015 (0-0.045) ng/ml Total Protein 5.6 L (6.4-8.2) gm/dl Albumin 2.9 L (3.4-5.0) gm/dl Globulin 2.7 (2.5-4.0) gm/dl Albumin/Globulin Ratio 1.1 (0.9-2) Lipase 120 (73-393) U/L COVID-19 Eval Order SARS-CoV-2 (PCR) (Negative) Blood Type Blood Type Recheck Antibody Screen Crossmatch 04/24/21 04/24/21 04/24/21 Range/Units 11:43 12:21 12:21 WBC (4.8-10.8) K/uL RBC (4.7-6.1) M/uL Hgb (14.0-18.0) g/dL Hct (42-52) % MCV (80-100) fL MCH (25-34) pg MCHC (32-36) g/dL RDW Std Deviation (36.4-46.3) fL RDW Coeff of Nick (11.5-14.5) % Plt Count (130-400) K/uL MPV (7.4-10.4) fL Immature Gran % (Auto) % Neut % (Auto) % Lymph % (Auto) % Mower % (Auto) % Eos % (Auto) % Baso % (Auto) % Neut # (Auto) (1.4-6.5) K/uL Lymph # (Auto) (1.2-3.4) K/uL Mower # (Auto) (0.11-0.59) K/uL Eos # (Auto) (0-0.5) K/uL Baso # (Auto) (0-0.2) K/uL Immature Gran # (Auto) (0.00-0.02) K/uL Polychromasia PT 10.3 (9.0-12.0) Seconds INR 1.0 (0.9-1.1) APTT (21.0-31.0) Seconds PTT Ratio Sodium (136-145) mmol/L Potassium (3.5-5.1) mmol/L Chloride (98-107) mmol/L Carbon Dioxide (21-32) mmol/L Anion Gap (3-11) BUN (7-18) mg/dl Creatinine (0.6-1.4) mg/dl Est Cr Clr Drug Dosing ml/min Est GFR ( Amer) ml/min Est GFR (Non-Af Amer) ml/min BUN/Creatinine Ratio (10-20) Glucose (70-99) mg/dl Calcium (8.5-10.1) mg/dl Magnesium 2.1 (1.8-2.4) mg/dl Total Bilirubin (0.2-1) mg/dl AST (15-37) U/L ALT (12-78) U/L Alkaline Phosphatase (45-117) U/L Troponin I (0-0.045) ng/ml Total Protein (6.4-8.2) gm/dl Albumin (3.4-5.0) gm/dl Globulin (2.5-4.0) gm/dl Albumin/Globulin Ratio (0.9-2) Lipase (73-393) U/L COVID-19 Eval Order SARS-CoV-2 (PCR) (Negative) Blood Type A Positive Blood Type Recheck Antibody Screen NEGATIVE Crossmatch See Detail 04/24/21 04/24/21 04/24/21 Range/Units 12:37 12:37 12:49 WBC (4.8-10.8) K/uL RBC (4.7-6.1) M/uL Hgb (14.0-18.0) g/dL Hct (42-52) % MCV (80-100) fL MCH (25-34) pg MCHC (32-36) g/dL RDW Std Deviation (36.4-46.3) fL RDW Coeff of Nick (11.5-14.5) % Plt Count (130-400) K/uL MPV (7.4-10.4) fL Immature Gran % (Auto) % Neut % (Auto) % Lymph % (Auto) % Mower % (Auto) % Eos % (Auto) % Baso % (Auto) % Neut # (Auto) (1.4-6.5) K/uL Lymph # (Auto) (1.2-3.4) K/uL Mower # (Auto) (0.11-0.59) K/uL Eos # (Auto) (0-0.5) K/uL Baso # (Auto) (0-0.2) K/uL Immature Gran # (Auto) (0.00-0.02) K/uL Polychromasia PT (9.0-12.0) Seconds INR (0.9-1.1) APTT (21.0-31.0) Seconds PTT Ratio Sodium (136-145) mmol/L Potassium (3.5-5.1) mmol/L Chloride (98-107) mmol/L Carbon Dioxide (21-32) mmol/L Anion Gap (3-11) BUN (7-18) mg/dl Creatinine (0.6-1.4) mg/dl Est Cr Clr Drug Dosing ml/min Est GFR ( Amer) ml/min Est GFR (Non-Af Amer) ml/min BUN/Creatinine Ratio (10-20) Glucose (70-99) mg/dl Calcium (8.5-10.1) mg/dl Magnesium (1.8-2.4) mg/dl Total Bilirubin (0.2-1) mg/dl AST (15-37) U/L ALT (12-78) U/L Alkaline Phosphatase (45-117) U/L Troponin I (0-0.045) ng/ml Total Protein (6.4-8.2) gm/dl Albumin (3.4-5.0) gm/dl Globulin (2.5-4.0) gm/dl Albumin/Globulin Ratio (0.9-2) Lipase (73-393) U/L COVID-19 Eval Order Covid19 at [facility] SARS-CoV-2 (PCR) NEGATIVE (Negative) Blood Type Blood Type Recheck A Positive Antibody Screen Crossmatch Administered Medications Discontinued Medications Famotidine (Famotidine 20mg/5ml Iv Push) 20 mg IV ONE STA Stop: 04/24/21 12:38 Last Admin: 04/24/21 13:36 Dose: 20 mg Documented by: [id number] Pantoprazole Sodium 40 mg/ (Syringe) 10 mls @ 5 mls/min IV NOW ONE Stop: 04/24/21 12:38 Last Admin: 04/24/21 14:14 Dose: 5 mls/min Documented by: [id number] Thiamine HCl 200 mg/ Sodium (Chloride) 52 mls @ 208 mls/hr IV NOW STA Stop: 04/24/21 13:02 Last Infusion: 04/24/21 14:15 Dose: 0 mls/hr Documented by: [id number] Admin: 04/24/21 13:36 Dose: 208 mls/hr Documented by: [id number] Pantoprazole Sodium 40 mg/ (Syringe) 10 mls @ 5 mls/min IV ONCE ONE Stop: 04/24/21 15:13 Last Admin: 04/24/21 15:38 Dose: 5 mls/min Documented by: [id number] Ioversol (Optiray 320 100ml) 94 ml IV ONCE ONE Stop: 04/24/21 13:12 Last Admin: 04/24/21 13:11 Dose: 94 ml Documented by: [id number] Metoclopramide HCl (Metoclopramide Hcl Inj 5 Mg/Ml 2 Ml Vial) 10 mg IV NOW STA Stop: 04/24/21 14:06 Last Admin: 04/24/21 14:15 Dose: 10 mg Documented by: [id number] Metoclopramide HCl (Metoclopramide Hcl Inj 5 Mg/Ml 2 Ml Vial) Confirm Administered Dose 10 mg .ROUTE .STK-MED ONE Stop: 04/24/21 14:09 Last Admin: 04/24/21 14:15 Dose: Not Given Documented by: [id number] Imaging Data Radiologist's Impression: Chest X-Ray 04/24/21 11:42 XR chest 1V portable CLINICAL HISTORY: Atypical chest pain COMPARISON STUDY: 10/29/2016 FINDINGS: The cardiac and mediastinal contours are normal. There is no evidence of focal pulmonary consolidation. There is no evidence of failure. No pleural effusions are visualized.[Degenerative changes are present within the left AC joint IMPRESSION: No active disease in the chest. ACT 112: Negative or not required by law. Electronically signed by: Victorino Martin M.D. 04/24/2021 12:04 PM Abdomen/Pelvis CT 04/24/21 12:48 CT OF THE ABDOMEN AND PELVIS WITH CONTRAST CLINICAL HISTORY: Abdominal pain. Anemia. COMPARISON STUDY: CT of the abdomen and pelvis February 23, 2021. TECHNIQUE: Following IV administration of 94 mL of Optiray, axial images of the abdomen and pelvis were obtained from the lung bases to the proximal femurs. Images were reviewed in the axial, sagittal, and coronal planes. IV contrast was administered without complication. Automated exposure control was utilized for the study. A dose lowering technique was utilized adhering to the principles of ALARA. CT DOSE: 1045.41 mGycm FINDINGS: Multiple right-sided rib fractures are again noted. These were shown on CT of February 23, 2021. There is a small hiatal hernia. As before, the distal esophagus is mildly distended and fluid-filled. No pneumatosis, free air or portal venous gas is present. The liver, spleen, adrenal glands, kidneys and pancreas are normal. There is no biliary or pancreatic ductal dilatation. There is no peripancreatic or pericholecystic infiltration. The appendix is normal. Sensitivity for detection of bowel mucosal lesions is diminished given CT technique but none are identified. There is no evidence for a bowel obstruction. Colonic diverticulosis is noted without evidence for acute diverticulitis. There is no lymphadenopathy. There is no ascites. IMPRESSION: 1. No acute process within the abdomen or pelvis. 2. Small hiatal hernia with mildly dilated, fluid-filled distal esophagus, similar in appearance to prior CT. 3. Colonic diverticulosis without evidence for acute diverticulitis. 4. Redemonstration of multiple right-sided rib fractures. ACT 112: Negative or not required by law. Electronically signed by: Esteban Segura M.D. 04/24/2021 1:[address] 04/24/21 12:48 CT head/brain wo con CLINICAL HISTORY: Dizziness. Syncope. COMPARISON STUDY: No previous studies for comparison. TECHNIQUE: Axial CT of the brain is performed from the vertex to the skull base. IV contrast was not administered for this examination. A dose lowering technique was utilized adhering to the principles of ALARA. CT DOSE: 638.56 mGycm FINDINGS: No intra or extra-axial mass lesions are visualized. There is no CT evidence of acute cortical infarction. There is no evidence of midline shift. There is no acute hemorrhage. No calvarial fractures are visualized. There is no evidence of pathologic ventricular dilatation. There is no evidence of acute sinusitis IMPRESSION: No acute intracranial findings ACT 112: Negative or not required by law. Electronically signed by: Victorino Martin M.D. 04/24/2021 1:31 PM Discharge Plan Visit Data Chief Complaint: Chest Pain Stated Complaint: SOB CHEST PAIN ED Provider: Mark Musa Discharge Problem: Acute upper gastrointestinal bleeding, Chest pain, Anemia, Near syncope Patient Disposition: Being Evaluated by Hospitalist Condition: Good Discharge Instructions Interventions: ED Discharge Assessment Last Done: 04/24/21 15:44 Discharge Problem: Chest pain Qualifiers: Chest pain type: unspecified Qualified Code(s): R07.9 - Chest pain, unspecified Anemia Qualifiers: Anemia type: unspecified type Qualified Code(s): D64.9 - Anemia, unspecified
[2021-04-24] MEDS ORDERED: OPTIRAY 320 100ml IV ONE (13:11)
--- NOTE | 2021-04-24 13:32 | CT Scan Report ---
CT head/brain wo con CLINICAL HISTORY: Dizziness. Syncope. COMPARISON STUDY: No previous studies for comparison. TECHNIQUE: Axial CT of the brain is performed from the vertex to the skull base. IV contrast was not administered for this examination. A dose lowering technique was utilized adhering to the principles of ALARA. CT DOSE: 638.56 mGycm FINDINGS: No intra or extra-axial mass lesions are visualized. There is no CT evidence of acute cortical infarc tion. There is no evidence of midline shift. There is no acute hemorrhage. No calvarial fractures ar e visualized. There is no evidence of pathologic ventricular dilatation. There is no evidence of acute sinusitis IMPRESSION: No acute intracranial findings ACT 112: Negative or not required by law. Electronically signed by: Victorino Martin M.D. 04/24/2021 1:31 PM
--- NOTE | 2021-04-24 13:49 | History & Physical Report ---
Date of Service April 24, 2021 Assessment & Plan (1) GI bleed: Presented with syncope, chest pain and epigastric pain with hematemesis and melena and a hemoglobin of 6.4 Strongly heme positive on rectal examination by ER physician on arrival With heavy aspirin use and alcohol abuse, likely with upper GI bleed. CT/abdomen of pelvis performed in the ER showed fluid-filled distal esophagus which is likely blood products, but otherwise nothing acute -Admit to PCU -Consult GI-plan for urgent EGD today -Reglan 10 mg IV x1 now to clear out the stomach -Continue IV PPI -Hold home p.o. medications -Keep n.p.o. -Avoid NSAIDs and aspirin, counseled on alcohol cessation -Serial CBC -Transfuse 2 units PRBCs now (2) Syncope: Likely secondary to acute blood loss anemia as above although blood pressures here are mildly elevated but likely is orthostatic Troponin negative, ECG without ischemic changes -Monitor on telemetry for arrhythmias -Transfusing with PRBCs -Check orthostatics in the morning -Bedrest for now (3) Acute blood loss anemia: As above, secondary to GI bleeding No other evidence of bleeding internally on CT abdomen/pelvis (4) Alcohol abuse: Counseled on cessation AWSS protocol with Ativan IV as needed -Continue IV thiamine daily, folic acid daily (5) Chest pain: Likely secondary to hematemesis as above, ECG without ischemic changes and initial troponin negative as above Serial troponin Daily ECG Giving IV PPI (6) Prolonged QT interval: QTC mildly prolonged Hold home Abilify and Lexapro for now Follow on telemetry, follow ECG in the morning (7) Right rib fracture: Had this after a fall 2 months ago, continues to take Tylenol and aspirin as needed Present on imaging today but not causing him much pain (8) Hiatal hernia with GERD: As above, visualized on CT Continue PPI (9) Depression with anxiety: Holding home Abilify and Lexapro as above IV PPI (10) DVT prophylaxis: SCDs only given acute GI bleeding Disposition-admit to PCU History of Present Illness Chief Complaint: Chest pain, passing out Primary Care Provider: NO PCP This patient is a 56-year-old male with a history of heavy alcohol use, aspirin use, and depression, who presents to the ER with multiple episodes of syncope, lightheadedness, and epigastric and chest pain. He also reports 2 to 3 days of vomiting black coffee-ground material as well as black tarry stools. He reports he drinks about 4-5 beers a day and is also been taking daily aspirin for headaches. He denies any other NSAID use. No previous history of GI bleeding. In the ER, he was found to have a hemoglobin of 6.4 down from 12.72 months ago. He was mildly hyponatremic and had a mild elevation in his AST. Troponin was negative, lipase normal. Covid-[address] abdomen/pelvis shows small hiatal hernia with mildly dilated fluid-filled distal esophagus, redemonstration of multiple right-sided rib fractures, but no other acute intra-abdominal process. CT of the head was negative for acute issues, and chest x-ray negative for acute disease. ECG was normal sinus rhythm, 93 for the rate, prolonged QT at 492. In the ER, he was typed and crossmatched for 2 units of PRBCs and given IV PPI. I discussed the case with GI who will scope him urgently today after 1 dose of IV Reglan. Allergies Allergy/AdvReac Type Severity Reaction Status Date / Time cyclobenzaprine AdvReac Unknown RASH ON Verified 04/24/21 13:52 FACE Home Medications Medication Instructions Recorded Confirmed Type aripiprazole [Abilify] 10 mg PO QAM 02/23/21 04/24/21 History escitalopram oxalate [Lexapro] 10 mg PO QAM 02/23/21 04/24/21 History multivitamin 1 tab PO QAM 04/24/21 04/24/21 History Past Med/Surg History Medical History (Updated 04/24/21 @ 14:36 by Socorro Encinas MD) Alcohol abuse Depression with anxiety No significant active problems Surgical History History of back surgery Family History (Updated 04/24/21 @ 14:24 by Socorro Encinas MD) Other Family history non-contributory Social History Smoking Status: Never smoker Second Hand Exposure: Yes; Do You Dip or Chew Tobacco: Yes; Hx Alcohol Use: Yes Alcohol type: beer Alcohol type Comment: 4-5 beers daily Alcohol Intake Frequency: 4 or More x per/Week Alcohol Intake Frequency Comment: daily Hx Substance Use: No Preferred Language: Pry[place]in[place] Communication Ability: Effective Customer Service Sales Associate Required: No Beliefs That Will Affect Care: None Current Living Situation: Other Feels Safe at Home: Yes Assistive Devices: None Review of Systems Review of Systems: All systems reviewed & are unremarkable except as noted in HPI & below Has been feeling short of breath the last 2 to 3 days Physical Exam Constitutional: WD/WN, vitals as above Eyes: PERRL, conjunctivae normal, anicteric sclerae ENMT: external ear and nose normal, oropharynx normal Neck: trachea midline, no thyromegaly Respiratory: normal respiratory effort, lungs clear to auscultation Cardiovascular: RRR, no murmur, no edema Chest (Breasts): Chest: normal inspection of chest Gastrointestinal (Abdomen): normal bowel sounds, soft, nontender, no hepatosplenomegaly Musculoskeletal: Extremities: extremities normal to inspection; no cyanosis and no clubbing Skin: no rashes, warm and dry Neurologic: moves all extremities and awake; no focal motor deficits Psychiatric: A+Ox3, euthymic affect Lymphatic: no lymphedema Results & Data Results & Data ([facility]) Vital Signs (Past 12 Hours) Vital Signs Temp Pulse Resp BP Pulse Ox 04/24/21 13:00 93 H 22 157/81 H 98 04/24/21 12:30 87 19 149/83 H 99 04/24/21 12:22 99 04/24/21 12:00 94 H 14 140/70 99 04/24/21 11:35 91 H 23 158/80 H 98 04/24/21 11:26 36.9 C 101 H 20 127/80 97 Laboratory Results 04/24/21 04/24/21 04/24/21 Range/Units 12:49 12:37 12:37 WBC (4.8-10.8) K/uL RBC (4.7-6.1) M/uL Hgb (14.0-18.0) g/dL Hct (42-52) % MCV (80-100) fL MCH (25-34) pg MCHC (32-36) g/dL RDW Std Deviation (36.4-46.3) fL RDW Coeff of Nick (11.5-14.5) % Plt Count (130-400) K/uL MPV (7.4-10.4) fL Immature Gran % (Auto) % Neut % (Auto) % Lymph % (Auto) % Hale % (Auto) % Eos % (Auto) % Baso % (Auto) % Neut # (Auto) (1.4-6.5) K/uL Lymph # (Auto) (1.2-3.4) K/uL Hale # (Auto) (0.11-0.59) K/uL Eos # (Auto) (0-0.5) K/uL Baso # (Auto) (0-0.2) K/uL Immature Gran # (Auto) (0.00-0.02) K/uL Polychromasia PT (9.0-12.0) Seconds INR (0.9-1.1) APTT (21.0-31.0) Seconds PTT Ratio Sodium (136-145) mmol/L Potassium (3.5-5.1) mmol/L Chloride (98-107) mmol/L Carbon Dioxide (21-32) mmol/L Anion Gap (3-11) BUN (7-18) mg/dl Creatinine (0.6-1.4) mg/dl Est Cr Clr Drug Dosing ml/min Est GFR ( Amer) ml/min Est GFR (Non-Af Amer) ml/min BUN/Creatinine Ratio (10-20) Glucose (70-99) mg/dl Calcium (8.5-10.1) mg/dl Magnesium (1.8-2.4) mg/dl Total Bilirubin (0.2-1) mg/dl AST (15-37) U/L ALT (12-78) U/L Alkaline Phosphatase (45-117) U/L Troponin I (0-0.045) ng/ml Total Protein (6.4-8.2) gm/dl Albumin (3.4-5.0) gm/dl Globulin (2.5-4.0) gm/dl Albumin/Globulin Ratio (0.9-2) Lipase (73-393) U/L COVID-19 Eval Order Covid19 at [facility] SARS-CoV-2 (PCR) NEGATIVE (Negative) Blood Type Blood Type Recheck A Positive Antibody Screen Crossmatch 04/24/21 04/24/21 04/24/21 Range/Units 12:21 12:21 11:43 WBC (4.8-10.8) K/uL RBC (4.7-6.1) M/uL Hgb (14.0-18.0) g/dL Hct (42-52) % MCV (80-100) fL MCH (25-34) pg MCHC (32-36) g/dL RDW Std Deviation (36.4-46.3) fL RDW Coeff of Nick (11.5-14.5) % Plt Count (130-400) K/uL MPV (7.4-10.4) fL Immature Gran % (Auto) % Neut % (Auto) % Lymph % (Auto) % Hale % (Auto) % Eos % (Auto) % Baso % (Auto) % Neut # (Auto) (1.4-6.5) K/uL Lymph # (Auto) (1.2-3.4) K/uL Hale # (Auto) (0.11-0.59) K/uL Eos # (Auto) (0-0.5) K/uL Baso # (Auto) (0-0.2) K/uL Immature Gran # (Auto) (0.00-0.02) K/uL Polychromasia PT 10.3 (9.0-12.0) Seconds INR 1.0 (0.9-1.1) APTT (21.0-31.0) Seconds PTT Ratio Sodium (136-145) mmol/L Potassium (3.5-5.1) mmol/L Chloride (98-107) mmol/L Carbon Dioxide (21-32) mmol/L Anion Gap (3-11) BUN (7-18) mg/dl Creatinine (0.6-1.4) mg/dl Est Cr Clr Drug Dosing ml/min Est GFR ( Amer) ml/min Est GFR (Non-Af Amer) ml/min BUN/Creatinine Ratio (10-20) Glucose (70-99) mg/dl Calcium (8.5-10.1) mg/dl Magnesium 2.1 (1.8-2.4) mg/dl Total Bilirubin (0.2-1) mg/dl AST (15-37) U/L ALT (12-78) U/L Alkaline Phosphatase (45-117) U/L Troponin I (0-0.045) ng/ml Total Protein (6.4-8.2) gm/dl Albumin (3.4-5.0) gm/dl Globulin (2.5-4.0) gm/dl Albumin/Globulin Ratio (0.9-2) Lipase (73-393) U/L COVID-19 Eval Order SARS-CoV-2 (PCR) (Negative) Blood Type A Positive Blood Type Recheck Antibody Screen NEGATIVE Crossmatch See Detail 04/24/21 04/24/21 04/24/21 Range/Units 11:43 11:43 11:43 WBC 9.57 (4.8-10.8) K/uL RBC 1.94 L (4.7-6.1) M/uL Hgb 6.4 L* (14.0-18.0) g/dL Hct 18.3 L* (42-52) % MCV 94.3 (80-100) fL MCH 33.0 (25-34) pg MCHC 35.0 (32-36) g/dL RDW Std Deviation 43.0 (36.4-46.3) fL RDW Coeff of Nick 12.7 (11.5-14.5) % Plt Count 328 (130-400) K/uL MPV 8.7 (7.4-10.4) fL Immature Gran % (Auto) 0.4 % Neut % (Auto) 69.8 % Lymph % (Auto) 21.8 % Hale % (Auto) 7.3 % Eos % (Auto) 0.6 % Baso % (Auto) 0.1 % Neut # (Auto) 6.67 H (1.4-6.5) K/uL Lymph # (Auto) 2.09 (1.2-3.4) K/uL Hale # (Auto) 0.70 H (0.11-0.59) K/uL Eos # (Auto) 0.06 (0-0.5) K/uL Baso # (Auto) 0.01 (0-0.2) K/uL Immature Gran # (Auto) 0.04 H (0.00-0.02) K/uL Polychromasia 1+ PT (9.0-12.0) Seconds INR (0.9-1.1) APTT 21.5 (21.0-31.0) Seconds PTT Ratio 0.8 Sodium 130 L (136-145) mmol/L Potassium 3.8 (3.5-5.1) mmol/L Chloride 96 L (98-107) mmol/L Carbon Dioxide 30 (21-32) mmol/L Anion Gap 4.0 (3-11) BUN 19 H (7-18) mg/dl Creatinine 0.77 (0.6-1.4) mg/dl Est Cr Clr Drug Dosing 117.6 ml/min Est GFR ( Amer) 117.6 ml/min Est GFR (Non-Af Amer) 101.4 ml/min BUN/Creatinine Ratio 24.7 H (10-20) Glucose 130 H (70-99) mg/dl Calcium 7.9 L (8.5-10.1) mg/dl Magnesium (1.8-2.4) mg/dl Total Bilirubin 0.3 (0.2-1) mg/dl AST 62 H (15-37) U/L ALT 60 (12-78) U/L Alkaline Phosphatase 60 (45-117) U/L Troponin I < 0.015 (0-0.045) ng/ml Total Protein 5.6 L (6.4-8.2) gm/dl Albumin 2.9 L (3.4-5.0) gm/dl Globulin 2.7 (2.5-4.0) gm/dl Albumin/Globulin Ratio 1.1 (0.9-2) Lipase 120 (73-393) U/L COVID-19 Eval Order SARS-CoV-2 (PCR) (Negative) Blood Type Blood Type Recheck Antibody Screen Crossmatch Diagnostic Findings Chest X-Ray 04/24/21 11:42 XR chest 1V portable CLINICAL HISTORY: Atypical chest pain COMPARISON STUDY: 10/29/2016 FINDINGS: The cardiac and mediastinal contours are normal. There is no evidence of focal pulmonary consolidation. There is no evidence of failure. No pleural effusions are visualized.[Degenerative changes are present within the left AC joint IMPRESSION: No active disease in the chest. ACT 112: Negative or not required by law. Electronically signed by: Victorino Martin M.D. 04/24/2021 12:04 PM Abdomen/Pelvis CT 04/24/21 12:48 CT OF THE ABDOMEN AND PELVIS WITH CONTRAST CLINICAL HISTORY: Abdominal pain. Anemia. COMPARISON STUDY: CT of the abdomen and pelvis February 23, 2021. TECHNIQUE: Following IV administration of 94 mL of Optiray, axial images of the abdomen and pelvis were obtained from the lung bases to the proximal femurs. Images were reviewed in the axial, sagittal, and coronal planes. IV contrast was administered without complication. Automated exposure control was utilized for the study. A dose lowering technique was utilized adhering to the principles of ALARA. CT DOSE: 1045.41 mGycm FINDINGS: Multiple right-sided rib fractures are again noted. These were shown on CT of February 23, 2021. There is a small hiatal hernia. As before, the distal esophagus is mildly distended and fluid-filled. No pneumatosis, free air or portal venous gas is present. The liver, spleen, adrenal glands, kidneys and pancreas are normal. There is no biliary or pancreatic ductal dilatation. There is no peripancreatic or pericholecystic infiltration. The appendix is normal. Sensitivity for detection of bowel mucosal lesions is diminished given CT technique but none are identified. There is no evidence for a bowel obstruction. Colonic diverticulosis is noted without evidence for acute diverticulitis. There is no lymphadenopathy. There is no ascites. IMPRESSION: 1. No acute process within the abdomen or pelvis. 2. Small hiatal hernia with mildly dilated, fluid-filled distal esophagus, similar in appearance to prior CT. 3. Colonic diverticulosis without evidence for acute diverticulitis. 4. Redemonstration of multiple right-sided rib fractures. ACT 112: Negative or not required by law. Electronically signed by: Esteban Segura M.D. 04/24/2021 1:[address] 04/24/21 12:48 CT head/brain wo con CLINICAL HISTORY: Dizziness. Syncope. COMPARISON STUDY: No previous studies for comparison. TECHNIQUE: Axial CT of the brain is performed from the vertex to the skull base. IV contrast was not administered for this examination. A dose lowering technique was utilized adhering to the principles of ALARA. CT DOSE: 638.56 mGycm FINDINGS: No intra or extra-axial mass lesions are visualized. There is no CT evidence of acute cortical infarction. There is no evidence of midline shift. There is no acute hemorrhage. No calvarial fractures are visualized. There is no evidence of pathologic ventricular dilatation. There is no evidence of acute sinusitis IMPRESSION: No acute intracranial findings ACT 112: Negative or not required by law. Electronically signed by: Victorino Martin M.D. 04/24/2021 1:31 PM Code Status & VTE Plan Code Status Full code VTE Prophylaxis Plan VTE Prophylaxis will be ordered: Yes PG Care Time/CCT Total # of Minutes Spent Total Time Spent with Patient: Total time spent is greater than 50% in coordination of care (as documented) at patient's floor/unit and/or counseling patient: Coding Level of Care Code 18708 Initial Inpt Care Lvl 3 Diagnoses GI bleed K92.2 Syncope R55 Acute blood loss anemia D62 Alcohol abuse F10.10 Chest pain R07.9 Prolonged QT interval R94.31 Right rib fracture S22.31XA Hiatal hernia with GERD K21.9; K44.9 Depression with anxiety F41.8 DVT prophylaxis Z29.9
--- NOTE | 2021-04-24 13:52 | CT Scan Report ---
CT OF THE ABDOMEN AND PELVIS WITH CONTRAST CLINICAL HISTORY: Abdominal pain. Anemia. COMPARISON STUDY: CT of the abdomen and pelvis February 23, 2021. TECHNIQUE: Following IV administration of 94 mL of Optiray, axial images of the abdomen and pelvis we re obtained from the lung bases to the proximal femurs. Images were reviewed in the axial, sagittal, and coronal planes. IV contrast was administered without complication. Automated exposure control wa s utilized for the study. A dose lowering technique was utilized adhering to the principles of ALARA . CT DOSE: 1045.41 mGycm FINDINGS: Multiple right-sided rib fractures are again noted. These were shown on CT of February 23, 2021. There is a small hiatal hernia. As before, the distal esophagus is mildly distended and fluid-filled. No pneumatosis, free air or portal venous gas is present. The liver, spleen, adrenal glands, kidneys and pancreas are normal. There is no biliary or pancreatic ductal dilatation. There is no peripancre atic or pericholecystic infiltration. The appendix is normal. Sensitivity for detection of bowel muco laura lesions is diminished given CT technique but none are identified. There is no evidence for a elenita l obstruction. Colonic diverticulosis is noted without evidence for acute diverticulitis. There is no lymphadenopathy. There is no ascites. IMPRESSION: 1. No acute process within the abdomen or pelvis. 2. Small hiatal hernia with mildly dilated, fluid-filled distal esophagus, similar in appearance to p rior CT. 3. Colonic diverticulosis without evidence for acute diverticulitis. 4. Redemonstration of multiple right-sided rib fractures. ACT 112: Negative or not required by law. Electronically signed by: Esteban Segura M.D. 04/24/2021 1:51 PM
[2021-04-24] MEDS ORDERED: METOCLOPRAMIDE HCL INJ 5 MG/ML 2 ML VIAL IV STA (14:05)
[2021-04-24] MEDS ORDERED: METOCLOPRAMIDE HCL INJ 5 MG/ML 2 ML VIAL ONE (14:08)
--- NOTE | 2021-04-24 14:47 | Anesthesiology Consultation ---
Date of Service April 24, 2021 Assessment & Plan (1) Encounter for pre-operative examination: Chart Review Chart Review: Acceptable Risk for Surgery, Patient NOT seen in Pre Admission Testing and entry level installation technician initiated Consults Requested none Proposed Anesthesia Risk / Benefits Reviewed With: PT / POA / Parent / Guardian, Accepts Plan and Informed Consent Obtained History Height/Weight Height: 6 ft Weight: 87.2 kg Allergies Allergy/AdvReac Type Severity Reaction Status Date / Time cyclobenzaprine AdvReac Unknown RASH ON Verified 04/24/21 13:52 FACE Medications Home Medications Medication Instructions Recorded Confirmed Last Taken aripiprazole [Abilify] 10 mg PO QAM 02/23/21 04/24/21 04/24/21 escitalopram oxalate [Lexapro] 10 mg PO QAM 02/23/21 04/24/21 04/24/21 multivitamin 1 tab PO QAM 04/24/21 04/24/21 04/24/21 Past Medical History Medical History (Updated 04/24/21 @ 14:51 by Rigo Ortiz MD) Acute blood loss anemia Alcohol abuse Depression with anxiety GI bleed Hiatal hernia with GERD No significant active problems Prolonged QT interval Syncope Past Family History Family History Other Family history non-contributory Past Surgical History Surgical History History of back surgery Social History Smoking Status: Never smoker Do You Dip or Chew Tobacco: Yes Hx Alcohol Use: Yes Alcohol type: beer alcohol intake frequency: 3 or more drinks per day Hx Substance Use: No Physical Exam Vital Signs Last Vital Signs Temp 37 C 04/24/21 14:15 Pulse 92 H 04/24/21 14:15 Resp 16 04/24/21 14:15 BP 144/80 H 04/24/21 14:15 Pulse Ox 99 04/24/21 14:15 Testing Laboratory Results 04/24/21 11:43 04/24/21 11:43 PT 10.3 Seconds (9.0-12.0) 04/24/21 12:21 INR 1.0 (0.9-1.1) 04/24/21 12:21 APTT 21.5 Seconds (21.0-31.0) 04/24/21 11:43 Blood Type A Positive 04/24/21 12:21 Antibody Screen NEGATIVE 04/24/21 12:21 Electrocardiogram Date: 04/24/2124-Apr-2021 11:33:45 [facility]-EDSTAT ROUTINE RETRIEVAL Normal sinus rhythm Prolonged QT Abnormal ECG When compared with ECG of 23-FEB-2021 04:21, No significant change was found Chest X-Ray Date: 04/24/21 XR chest 1V portable CLINICAL HISTORY: Atypical chest pain COMPARISON STUDY: 10/29/2016 FINDINGS: The cardiac and mediastinal contours are normal. There is no evidence of focal pulmonary consolidation. There is no evidence of failure. No pleural effusions are visualized.[Degenerative changes are present within the left AC joint IMPRESSION: No active disease in the chest.
[2021-04-24] MEDS ORDERED: PANTOprazole 40 MG in DEXTROSE 5% 100 ML IV SCH (15:15)
--- NOTE | 2021-04-24 15:16 | Gastrointestinal Consultation ---
Date of Consultation April 24, 2021 Assessment & Plan (1) Acute blood loss anemia: (2) Alcohol abuse: (3) Melena: (4) Hematemesis: Recommend additional 40 mg of IV Protonix now, then will need Protonix gtt at 8 mg/hour He did receive Reglan 10 mg IV x 1 now to aid with gastric emptying for visualization. Transfuse PRN to maintain H/H >8/24 Proceed with Urgent EGD I asked the ER Nurse to place a 2nd IV now Further recommendations to follow above noted testing History of Present Illness Reason for Consultation: Hematemesis, Melena, Acute Blood loss anemia Attending Physician: Kai Licona is a 56 yo CM with a PMHx of alcohol abuse who was admitted to [facility] last month secondary to a fall with multiple rib fractures. He was medically stabilized and discharged. Since that time, he has been using NSAID's for pain control. He has also been drinking daily, up to 12 beers per day. He states that over the past few days he has had weakness, lightheadedness, black stools, and did have bloody vomiting on several occasions. He does state that he, "passed out at least twice." Upon arrival to the ER, he was noted to have an H/H of 6.4/18.3. He was given IVF, IV Protonix and IV pepcid therapy, and was receiving his first unit of PRBC at the time I saw him. He states that his lightheadedness and dizziness with position changes has improved. He does have some mid abdominal pain, 4/10 in intensity, non- radiating, achy, without alleviating factors. He states that he has never been told that he has cirrhosis in the past, and has never had an EGD previously. He denies any further complaints at this time. Allergies Allergy/AdvReac Type Severity Reaction Status Date / Time cyclobenzaprine AdvReac Unknown RASH ON Verified 04/24/21 13:52 FACE Home Medications Medication Instructions Recorded Confirmed Type aripiprazole [Abilify] 10 mg PO QAM 02/23/21 04/24/21 History escitalopram oxalate [Lexapro] 10 mg PO QAM 02/23/21 04/24/21 History multivitamin 1 tab PO QAM 04/24/21 04/24/21 History Patient History Medical History Acute blood loss anemia Alcohol abuse Depression with anxiety GI bleed Hiatal hernia with GERD No significant active problems Prolonged QT interval Syncope Surgical History History of back surgery Family History Other Family history non-contributory Social History Smoking Status: Never smoker Second Hand Exposure: Yes; Do You Dip or Chew Tobacco: Yes; Hx Alcohol Use: Yes Alcohol type: beer Alcohol type Comment: 4-5 beers daily Alcohol Intake Frequency: 4 or More x per/Week Alcohol Intake Frequency Comment: daily Hx Substance Use: No Preferred Language: Ukrainian Communication Ability: Effective Clinical Systems Educator Required: No Beliefs That Will Affect Care: None Current Living Situation: Other Feels Safe at Home: Yes Assistive Devices: None Review of Systems Review of Systems: All systems reviewed & are unremarkable except as noted in HPI & below Physical Exam Constitutional: + ill appearing; no acute distress Eyes: + anicteric sclerae ENMT: external ear and nose normal, oropharynx normal Neck: normal visual inspection Respiratory: normal respiratory effort, lungs clear to auscultation Cardiovascular: RRR, no murmur, no edema Gastrointestinal (Abdomen): Inspection/Auscultation: abdomen normal to inspection and normal bowel sounds; abdomen not distended Percussion/Palpation: + abdomen tender (Mid-abdomen) and abdomen soft Skin: no rashes, warm and dry Psychiatric: A+Ox3, euthymic affect Results & Data ([facility]) Vital Signs (Past 12 Hours) Vital Signs Temp Pulse Resp BP Pulse Ox 04/24/21 14:50 37.1 C 84 16 138/93 98 04/24/21 14:35 37 C 85 16 157/89 H 98 04/24/21 14:15 37 C 92 H 16 144/80 H 99 04/24/21 14:00 91 H 18 138/90 100 04/24/21 13:30 94 H 16 146/87 H 97 04/24/21 13:00 93 H 22 157/81 H 98 04/24/21 12:30 87 19 149/83 H 99 04/24/21 12:22 99 04/24/21 12:00 94 H 14 140/70 99 04/24/21 11:35 91 H 23 158/80 H 98 04/24/21 11:26 36.9 C 101 H 20 127/80 97 PG Care Time/CCT Total # of Minutes Spent Total Time Spent with Patient: Total time spent is greater than 50% in coordination of care (as documented) at patient's floor/unit and/or counseling patient: Coding Level of Care Code 19650 Inpt Consult Level 5 Diagnoses Acute blood loss anemia D62 Alcohol abuse F10.10 Melena K92.1 Hematemesis K92.0 Time Spent (min) 50 Comment Coordinating care with Dr. Encinas of Hospitalist team and Dr. Lynn of Anesthesia
[2021-04-24] MEDS ORDERED: PROPOFOL IV EMULSION 10 MG/ML 20 ML VIAL IV ONE (15:44)
[2021-04-24] MEDS ORDERED: ONDANSETRON INJ 2 MG/ML 2 ML VIAL ONE (15:44)
[2021-04-24] MEDS ORDERED: fentaNYL citrate 100 MCG/2 ML VIAL ONE (15:44)
[2021-04-24] MEDS ORDERED: LIDOCAINE 2% 2 ML VIAL/AMP(20MG/ML) INFIL ONE (15:44)
[2021-04-24] MEDS ORDERED: MIDAZOLAM HCL 1 MG/ML 2ML VIAL ONE (15:45)
[2021-04-24] MEDS ORDERED: HYDROmorphone INJ 2 MG/ML SYR/VIAL IV PRN (15:58)
[2021-04-24] MEDS ORDERED: ePHEDrine sulfate 50 MG/ML AMP IV PRN (15:58)
[2021-04-24] MEDS ORDERED: ATROPINE SULFATE 0.1 MG/ML 10ML SYR IV PRN (15:58)
[2021-04-24] MEDS ORDERED: fentaNYL citrate 100 MCG/2 ML VIAL IV PRN (15:58)
[2021-04-24] MEDS ORDERED: ONDANSETRON INJ 2 MG/ML 2 ML VIAL IV PRN ×2 (15:58→17:32)
--- NOTE | 2021-04-24 16:43 | GI REPORT ---
Patient Name: Kai Licona Procedure Date: 04/24/2021 3:52 PM Date of : 1965 Admit Type: Emergency Department Age: 56 Gender: Male Attending MD: Garo Oneil DO Procedure: Upper GI endoscopy Providers: Garo Oneil DO Referring MD: Mark Musa Indications: Acute post hemorrhagic anemia, Hematemesis, Melena Medicines: Monitored Anesthesia Care Complications: No immediate complications. Estimated Blood Loss: Estimated blood loss: none. Procedure: Pre-Anesthesia Assessment: - Prior to the procedure, a History and Physical was performed, and patient medications and allergies were reviewed. The patient's tolerance of previous anesthesia was also reviewed. The risks and benefits of the procedure and the sedation options and risks were discussed with the patient. All questions were answered, and informed consent was obtained. Prior Anticoagulants: The patient has taken no previous anticoagulant or antiplatelet agents. ASA Grade Assessment: E - Emergency. After reviewing the risks and benefits, the patient was deemed in satisfactory condition to undergo the procedure. After obtaining informed consent, the endoscope was passed under direct vision. Throughout the procedure, the patient's blood pressure, pulse, and oxygen saturations were monitored continuously. The Scope was introduced through the mouth, and advanced to the third part of duodenum. The upper GI endoscopy was accomplished without difficulty. The patient tolerated the procedure well. Findings: One cratered esophageal ulcer oozing blood was found 37 cm from the incisors. The lesion was 15 mm in largest dimension. Area was unsuccessfully injected with 3 mL of a 1:10,000 solution of epinephrine for hemostasis. Fulguration to ablate the remaining base of the lesion by bipolar probe was successful. A small hiatal hernia was present. Hematin (altered blood/healam-pdmlzw-prov material) was found in the entire examined stomach. The examined duodenum was normal. Impression: - Esophageal ulcer oozing blood. Treatment not successful. Treated with bipolar cautery. - Small hiatal hernia. - Hematin (altered blood/bdamac-ruhmsn-ntyi material) in the entire stomach. - Normal examined duodenum. - No specimens collected. Recommendation: - Admit the patient to hospital dee for ongoing care. - Clear liquid diet. - Give Protonix (pantoprazole): 8 mg/hr IV by continuous infusion for 72 hours. Garo Oneil DO 04/24/2021 4:43:05 PM This report has been signed electronically. Note Initiated On: 04/24/2021 3:52 PM Number of Addenda: 0 I attest to the content of the Intraoperative Record and orders documented therein, exceptions below {[id number]}
[2021-04-24] MEDS ORDERED: LORazepam 1 MG/2 ML VIAL IV PRN (17:32)
--- NOTE | 2021-04-24 17:36 | Electrocardiogram Report ---
Test Reason : Blood Pressure : / mmHG Vent. Rate : 093 BPM Atrial Rate : 093 BPM P-R Int : 140 ms QRS Dur : 082 ms QT Int : 380 ms P-R-T Axes : 075 066 065 degrees QTc Int : 473 ms Normal sinus rhythm Prolonged QT Abnormal ECG When compared with ECG of 23-FEB-2021 04:21, No significant change was found Confirmed by Pradeep Torres ([id number]) on 04/24/2021 5:35:31 PM Referred By: Confirmed By:Pradeep Torres
--- NOTE | 2021-04-24 18:27 | Anesthesiology Progress Note ---
Date of Service April 24, 2021 Anesthesia Post Procedure Vital Signs Vital Signs: Temp Pulse Pulse Pulse Resp BP BP 04/24/21 18:20 83 04/24/21 18:00 20 04/24/21 17:43 37.2 C 83 20 133/77 04/24/21 17:25 76 18 144/96 H 04/24/21 17:15 37 C 80 16 147/95 H 04/24/21 17:05 81 18 146/95 H 04/24/21 16:55 82 20 146/101 H 04/24/21 16:45 86 20 156/96 H 04/24/21 16:36 36.4 C L 84 16 167/96 H 04/24/21 15:48 37.1 C 18 119/76 04/24/21 15:20 37 C 83 16 151/85 H 04/24/21 14:50 37.1 C 84 16 138/93 04/24/21 14:35 37 C 85 16 157/89 H 04/24/21 14:15 37 C 92 H 16 144/80 H 04/24/21 14:00 91 H 18 138/90 04/24/21 13:30 94 H 16 146/87 H 04/24/21 13:00 93 H 22 157/81 H 04/24/21 12:30 87 19 149/83 H 04/24/21 12:22 04/24/21 12:00 94 H 14 140/70 04/24/21 11:35 91 H 23 158/80 H 04/24/21 11:26 36.9 C 101 H 20 127/80 Pulse Ox 04/24/21 18:20 04/24/21 18:00 04/24/21 17:43 96 04/24/21 17:25 100 04/24/21 17:15 100 04/24/21 17:05 100 04/24/21 16:55 100 04/24/21 16:45 100 04/24/21 16:36 100 04/24/21 15:48 96 04/24/21 15:20 100 04/24/21 14:50 98 04/24/21 14:35 98 04/24/21 14:15 99 04/24/21 14:00 100 04/24/21 13:30 97 04/24/21 13:00 98 04/24/21 12:30 99 04/24/21 12:22 99 04/24/21 12:00 99 04/24/21 11:35 98 04/24/21 11:26 97 Pain Intensity Medial Chest: Pain Intensity: 10 Transfer of Care Handoff Completed per policy Notes Mental Status: alert / awake / arousable and participated in evaluation Patient Amnestic to Procedure: Yes Nausea / Vomiting: adequately controlled Pain: adequately controlled Airway Patency, RR, SpO2: stable & adequate BP & HR: stable & adequate Hydration State: stable & adequate Anesthetic Complications: no major complications apparent and Pt Satisfied with anesthetic care
[2021-04-24] MEDS: PANTOprazole 40 MG in DEXTROSE 5% 100 ML IV SCH ×2 (18:33→23:18)
[2021-04-24 20:22] LABS: Hematocrit (blood only) 23.1 % (42-52); Mean Corpuscular Hgb Conc 34.6 g/dL (32-36); Mean Corpuscular Volume 92.4 fL (80-100); Mean Platelet Volume 8.6 fL (7.4-10.4); Platelet Count 266 K/uL (130-400); RDW Coefficient of Variation 13.6 % (11.5-14.5); RDW Standard Deviation 45.3 fL (36.4-46.3); White Blood Count 8.95 K/uL (4.8-10.8)
[2021-04-25 00:16] LABS: Hematocrit (blood only) 21.5 % (42-52); Hemoglobin 7.5 g/dL (14.0-18.0); Mean Corpuscular Hemoglobin 32.3 pg (25-34); Mean Corpuscular Hgb Conc 34.9 g/dL (32-36); Mean Corpuscular Volume 92.7 fL (80-100); Mean Platelet Volume 8.6 fL (7.4-10.4); Platelet Count 227 K/uL (130-400); RDW Coefficient of Variation 13.9 % (11.5-14.5); RDW Standard Deviation 45.6 fL (36.4-46.3); Red Blood Count 2.32 M/uL (4.7-6.1); White Blood Count 8.71 K/uL (4.8-10.8)
[2021-04-25] MEDS ORDERED: SODIUM CHLORIDE 0.9% 250 ML IV PRN ×2 (01:02→09:12)
[2021-04-25] MEDS ORDERED: ACETAMINOPHEN 500 MG TAB PO PRN (01:51)
[2021-04-25] MEDS ORDERED: diphenhydrAMINE Capsule 25 MG CAP PO ONE (01:53)
[2021-04-25] MEDS: LIDOCAINE 5% 1 PATCH TD SCH (02:50)
[2021-04-25] MEDS: PANTOprazole 40 MG in DEXTROSE 5% 100 ML IV SCH ×5 (03:36→22:46)
[2021-04-25 06:38] LABS: Hematocrit (blood only) 24.6 % (42-52); Hemoglobin 8.3 g/dL (14.0-18.0); Mean Corpuscular Hemoglobin 30.6 pg (25-34); Mean Corpuscular Hgb Conc 33.7 g/dL (32-36); Mean Corpuscular Volume 90.8 fL (80-100); Mean Platelet Volume 8.7 fL (7.4-10.4); Platelet Count 246 K/uL (130-400); RDW Coefficient of Variation 15.3 % (11.5-14.5); RDW Standard Deviation 49.9 fL (36.4-46.3); Red Blood Count 2.71 M/uL (4.7-6.1)
[2021-04-25 07:22] LABS: Albumin Globulin Ratio 0.9 (0.9-2); Albumin Level 2.4 gm/dl (3.4-5.0); BUN Creatinine Ratio 18.2 (10-20); Bilirubin,Total 0.6 mg/dl (0.2-1); Calcium 7.3 mg/dl (8.5-10.1); Creatinine Clr Calc Pharmacy 129.3 ml/min; Est GFR (African American) 122.3 ml/min; Est GFR (Non-African American) 105.5 ml/min; Globulin 2.5 gm/dl (2.5-4.0); Magnesium 2.1 mg/dl (1.8-2.4); Phosphorus 2.7 mg/dl (2.5-4.9); Potassium 3.6 mmol/L (3.5-5.1); Total Protein 4.9 gm/dl (6.4-8.2)
[2021-04-25] MEDS: FOLIC ACID 1 MG TAB PO SCH (08:15)
[2021-04-25] MEDS: THIAMINE HCL 100 MG in SYRINGE 9 ML IV SCH (08:15)
[2021-04-25] MEDS ORDERED: LORazepam 1 MG TAB PO STA (09:17)
[2021-04-25 09:52] LABS: Hematocrit (blood only) 24.8 % (42-52); Hemoglobin 8.7 g/dL (14.0-18.0); Mean Corpuscular Hemoglobin 31.2 pg (25-34); Mean Corpuscular Volume 88.9 fL (80-100); Mean Platelet Volume 9.1 fL (7.4-10.4); Platelet Count 241 K/uL (130-400); RDW Coefficient of Variation 15.4 % (11.5-14.5); RDW Standard Deviation 49.3 fL (36.4-46.3); Red Blood Count 2.79 M/uL (4.7-6.1)
[2021-04-25 10:00] LABS: Mean Corpuscular Hgb Conc 35.1 g/dL (32-36)
[2021-04-25] MEDS ORDERED: LORazepam 1 MG TAB PO PRN (10:59)
--- NOTE | 2021-04-25 11:11 | Hospitalist Progress Note ---
Date of Service April 25, 2021 Assessment & Plan (1) GI bleed: Presented with syncope, chest pain and epigastric pain with hematemesis and melena and a hemoglobin of 6.4 Strongly heme positive on rectal examination by ER physician on arrival With heavy aspirin use and alcohol abuse, suspected upper GI bleed. CT/abdomen of pelvis performed in the ER showed fluid-filled distal esophagus which is likely blood products, but otherwise nothing acute EGD performed urgently on 04/25 showed bleeding large esophageal ulcer-cauterized Still some likely passage of old blood today, hgb stable Feels much better, less epigastric pain, inez clears diet Has received total 3 units PRBCs -Consult GI-appreciated -Continue IV PPI gtt x 72 hours through Tuesday -Hold home p.o. medications -adv to soft diet today -Avoid NSAIDs and aspirin, counseled on alcohol cessation -follow CBC daily now unless becomes tachycardic or hypotensive (2) Syncope: Likely secondary to acute blood loss anemia as above although blood pressures here are mildly elevated but likely is orthostatic Troponin negative x 2, ECG without ischemic changes -Monitor on telemetry for arrhythmias -Transfused with PRBCs and now much improved -Check orthostatics today -ok to get out of bed if orthostatics ok (3) Acute blood loss anemia: As above, secondary to GI bleeding No other evidence of bleeding internally on CT abdomen/pelvis (4) Alcohol abuse: Counseled on cessation AWSS protocol with Ativan IV as needed -Continue IV thiamine daily, folic acid daily -he reports he started drinking again after PCP refused to Rx ativan anymore- 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 but will provide ativan prn anxiety here (5) Chest pain: Likely secondary to hematemesis as above with esophageal ulcer, ECG without ischemic changes and initial troponin negative as above Serial troponin neg x 2 Daily ECG with prolonged QT only Giving IV PPI Now much improved (6) Prolonged QT interval: QTC mildly prolonged and persistent at 489 but no arrhythmias Hold home Abilify but can restart Lexapro Follow on telemetry (7) Right rib fracture: Had this after a fall 2 months ago, continues to take Tylenol and aspirin as needed Present on imagingon admission but not causing him much pain (8) Hiatal hernia with GERD: As above, visualized on CT Continue PPI (9) Depression with anxiety: Holding home Abilify and restarting Lexapro as above -could consider increase in Lexapro add on prn lorazepam but not a good fpc solution (10) DVT prophylaxis: SCDs only given acute GI bleeding Disposition-continued stay PCU Admission and Anticipated Discharge Date Admission Date: April 24, 2021 Subjective Pt feeling better, not lightheaded, only some mild upper abd pain, no SOB. Had some melena this AM but hgb increased on repeat check, HD stable. Adamant about advancing to soft diet. Also requesting a shower Feeling very anxious and feels much better since getting ativan. Feels that the reason he started drinking heaily again is because his doctor stopped Rx him ativan Tele with NSR rate 80s Review of Systems Review of Systems: All systems reviewed & are unremarkable except as noted in HPI & below Physical Exam Constitutional: WD/WN, vitals as above Eyes: + anicteric sclerae ENMT: external ear and nose normal, oropharynx normal Neck: trachea midline, no thyromegaly Respiratory: normal respiratory effort, lungs clear to auscultation Cardiovascular: RRR, no murmur, no edema Chest (Breasts): Chest: normal inspection of chest Gastrointestinal (Abdomen): normal bowel sounds, soft, nontender, no he patosplenomegaly Musculoskeletal: Extremities: extremities normal to inspection; no cyanosis and no clubbing Skin: no rashes, warm and dry Neurologic: moves all extremities and awake; no focal motor deficits Psychiatric: A+Ox3, euthymic affect Lymphatic: no lymphedema Results & Data Results & Data ([facility]) Vital Signs (Past 12 Hours) Vital Signs Temp Pulse Pulse Pulse Resp BP BP 04/25/21 08:21 36.7 C 90 19 123/77 04/25/21 07:50 78 04/25/21 04:55 37 C 93 H 16 122/73 04/25/21 03:43 36.9 C 84 16 129/78 04/25/21 02:43 37.1 C 89 16 126/76 04/25/21 02:13 37 C 79 16 136/75 04/25/21 01:58 37 C 83 16 142/82 H 04/25/21 01:34 37 C 85 16 129/70 04/25/21 01:00 86 04/24/21 23:04 36.8 C 94 H 18 120/68 Pulse Ox 04/25/21 08:21 96 04/25/21 07:50 04/25/21 04:55 97 04/25/21 03:43 93 04/25/21 02:43 93 04/25/21 02:13 94 04/25/21 01:58 96 04/25/21 01:34 97 04/25/21 01:00 04/24/21 23:04 96 Laboratory Results 04/25/21 04/25/21 04/25/21 Range/Units 09:12 06:16 06:16 WBC 9.10 8.10 (4.8-10.8) K/uL RBC 2.79 L 2.71 L (4.7-6.1) M/uL Hgb 8.7 L 8.3 L (14.0-18.0) g/dL Hct 24.8 L 24.6 L (42-52) % MCV 88.9 90.8 (80-100) fL MCH 31.2 30.6 (25-34) pg MCHC 35.1 33.7 (32-36) g/dL RDW Std Deviation 49.3 H 49.9 H (36.4-46.3) fL RDW Coeff of Nick 15.4 H 15.3 H (11.5-14.5) % Plt Count 241 246 (130-400) K/uL MPV 9.1 8.7 (7.4-10.4) fL Immature Gran % (Auto) % Neut % (Auto) % Lymph % (Auto) % [place] % (Auto) % Eos % (Auto) % Baso % (Auto) % Neut # (Auto) (1.4-6.5) K/uL Lymph # (Auto) (1.2-3.4) K/uL [place] # (Auto) (0.11-0.59) K/uL Eos # (Auto) (0-0.5) K/uL Baso # (Auto) (0-0.2) K/uL Immature Gran # (Auto) (0.00-0.02) K/uL Polychromasia PT (9.0-12.0) Seconds INR (0.9-1.1) APTT (21.0-31.0) Seconds PTT Ratio Sodium 133 L (136-145) mmol/L Potassium 3.6 (3.5-5.1) mmol/L Chloride 101 (98-107) mmol/L Carbon Dioxide 26 (21-32) mmol/L Anion Gap 5.0 (3-11) BUN 13 (7-18) mg/dl Creatinine 0.70 (0.6-1.4) mg/dl Est Cr Clr Drug Dosing 129.3 ml/min Est GFR ( Amer) 122.3 ml/min Est GFR (Non-Af Amer) 105.5 ml/min BUN/Creatinine Ratio 18.2 (10-20) Glucose 91 (70-99) mg/dl Calcium 7.3 L (8.5-10.1) mg/dl Phosphorus 2.7 (2.5-4.9) mg/dl Magnesium 2.1 (1.8-2.4) mg/dl Total Bilirubin 0.6 (0.2-1) mg/dl AST 30 (15-37) U/L ALT 46 (12-78) U/L Alkaline Phosphatase 60 (45-117) U/L Troponin I (0-0.045) ng/ml Total Protein 4.9 L (6.4-8.2) gm/dl Albumin 2.4 L (3.4-5.0) gm/dl Globulin 2.5 (2.5-4.0) gm/dl Albumin/Globulin Ratio 0.9 (0.9-2) Lipase (73-393) U/L COVID-19 Eval Order SARS-CoV-2 (PCR) (Negative) Blood Type Blood Type Recheck Antibody Screen Crossmatch 04/24/21 04/24/21 04/24/21 Range/Units 23:58 20:04 20:04 WBC 8.71 8.95 (4.8-10.8) K/uL RBC 2.32 L 2.50 L (4.7-6.1) M/uL Hgb 7.5 L 8.0 L (14.0-18.0) g/dL Hct 21.5 L 23.1 L (42-52) % MCV 92.7 92.4 (80-100) fL MCH 32.3 32.0 (25-34) pg MCHC 34.9 34.6 (32-36) g/dL RDW Std Deviation 45.6 45.3 (36.4-46.3) fL RDW Coeff of Nick 13.9 13.6 (11.5-14.5) % Plt Count 227 266 (130-400) K/uL MPV 8.6 8.6 (7.4-10.4) fL Immature Gran % (Auto) % Neut % (Auto) % Lymph % (Auto) % [place] % (Auto) % Eos % (Auto) % Baso % (Auto) % Neut # (Auto) (1.4-6.5) K/uL Lymph # (Auto) (1.2-3.4) K/uL [place] # (Auto) (0.11-0.59) K/uL Eos # (Auto) (0-0.5) K/uL Baso # (Auto) (0-0.2) K/uL Immature Gran # (Auto) (0.00-0.02) K/uL Polychromasia PT (9.0-12.0) Seconds INR (0.9-1.1) APTT (21.0-31.0) Seconds PTT Ratio Sodium (136-145) mmol/L Potassium (3.5-5.1) mmol/L Chloride (98-107) mmol/L Carbon Dioxide (21-32) mmol/L Anion Gap (3-11) BUN (7-18) mg/dl Creatinine (0.6-1.4) mg/dl Est Cr Clr Drug Dosing ml/min Est GFR ( Amer) ml/min Est GFR (Non-Af Amer) ml/min BUN/Creatinine Ratio (10-20) Glucose (70-99) mg/dl Calcium (8.5-10.1) mg/dl Phosphorus (2.5-4.9) mg/dl Magnesium (1.8-2.4) mg/dl Total Bilirubin (0.2-1) mg/dl AST (15-37) U/L ALT (12-78) U/L Alkaline Phosphatase (45-117) U/L Troponin I < 0.015 (0-0.045) ng/ml Total Protein (6.4-8.2) gm/dl Albumin (3.4-5.0) gm/dl Globulin (2.5-4.0) gm/dl Albumin/Globulin Ratio (0.9-2) Lipase (73-393) U/L COVID-19 Eval Order SARS-CoV-2 (PCR) (Negative) Blood Type Blood Type Recheck Antibody Screen Crossmatch 04/24/21 04/24/21 04/24/21 Range/Units 12:49 12:37 12:37 WBC (4.8-10.8) K/uL RBC (4.7-6.1) M/uL Hgb (14.0-18.0) g/dL Hct (42-52) % MCV (80-100) fL MCH (25-34) pg MCHC (32-36) g/dL RDW Std Deviation (36.4-46.3) fL RDW Coeff of Nick (11.5-14.5) % Plt Count (130-400) K/uL MPV (7.4-10.4) fL Immature Gran % (Auto) % Neut % (Auto) % Lymph % (Auto) % [place] % (Auto) % Eos % (Auto) % Baso % (Auto) % Neut # (Auto) (1.4-6.5) K/uL Lymph # (Auto) (1.2-3.4) K/uL [place] # (Auto) (0.11-0.59) K/uL Eos # (Auto) (0-0.5) K/uL Baso # (Auto) (0-0.2) K/uL Immature Gran # (Auto) (0.00-0.02) K/uL Polychromasia PT (9.0-12.0) Seconds INR (0.9-1.1) APTT (21.0-31.0) Seconds PTT Ratio Sodium (136-145) mmol/L Potassium (3.5-5.1) mmol/L Chloride (98-107) mmol/L Carbon Dioxide (21-32) mmol/L Anion Gap (3-11) BUN (7-18) mg/dl Creatinine (0.6-1.4) mg/dl Est Cr Clr Drug Dosing ml/min Est GFR ( Amer) ml/min Est GFR (Non-Af Amer) ml/min BUN/Creatinine Ratio (10-20) Glucose (70-99) mg/dl Calcium (8.5-10.1) mg/dl Phosphorus (2.5-4.9) mg/dl Magnesium (1.8-2.4) mg/dl Total Bilirubin (0.2-1) mg/dl AST (15-37) U/L ALT (12-78) U/L Alkaline Phosphatase (45-117) U/L Troponin I (0-0.045) ng/ml Total Protein (6.4-8.2) gm/dl Albumin (3.4-5.0) gm/dl Globulin (2.5-4.0) gm/dl Albumin/Globulin Ratio (0.9-2) Lipase (73-393) U/L COVID-19 Eval Order Covid19 at [facility] SARS-CoV-2 (PCR) NEGATIVE (Negative) Blood Type Blood Type Recheck A Positive Antibody Screen Crossmatch 04/24/21 04/24/21 04/24/21 Range/Units 12:21 12:21 11:43 WBC (4.8-10.8) K/uL RBC (4.7-6.1) M/uL Hgb (14.0-18.0) g/dL Hct (42-52) % MCV (80-100) fL MCH (25-34) pg MCHC (32-36) g/dL RDW Std Deviation (36.4-46.3) fL RDW Coeff of Nick (11.5-14.5) % Plt Count (130-400) K/uL MPV (7.4-10.4) fL Immature Gran % (Auto) % Neut % (Auto) % Lymph % (Auto) % [place] % (Auto) % Eos % (Auto) % Baso % (Auto) % Neut # (Auto) (1.4-6.5) K/uL Lymph # (Auto) (1.2-3.4) K/uL [place] # (Auto) (0.11-0.59) K/uL Eos # (Auto) (0-0.5) K/uL Baso # (Auto) (0-0.2) K/uL Immature Gran # (Auto) (0.00-0.02) K/uL Polychromasia PT 10.3 (9.0-12.0) Seconds INR 1.0 (0.9-1.1) APTT (21.0-31.0) Seconds PTT Ratio Sodium (136-145) mmol/L Potassium (3.5-5.1) mmol/L Chloride (98-107) mmol/L Carbon Dioxide (21-32) mmol/L Anion Gap (3-11) BUN (7-18) mg/dl Creatinine (0.6-1.4) mg/dl Est Cr Clr Drug Dosing ml/min Est GFR ( Amer) ml/min Est GFR (Non-Af Amer) ml/min BUN/Creatinine Ratio (10-20) Glucose (70-99) mg/dl Calcium (8.5-10.1) mg/dl Phosphorus (2.5-4.9) mg/dl Magnesium 2.1 (1.8-2.4) mg/dl Total Bilirubin (0.2-1) mg/dl AST (15-37) U/L ALT (12-78) U/L Alkaline Phosphatase (45-117) U/L Troponin I (0-0.045) ng/ml Total Protein (6.4-8.2) gm/dl Albumin (3.4-5.0) gm/dl Globulin (2.5-4.0) gm/dl Albumin/Globulin Ratio (0.9-2) Lipase (73-393) U/L COVID-19 Eval Order SARS-CoV-2 (PCR) (Negative) Blood Type A Positive Blood Type Recheck Antibody Screen NEGATIVE Crossmatch See Detail 04/24/21 04/24/21 04/24/21 Range/Units 11:43 11:43 11:43 WBC 9.57 (4.8-10.8) K/uL RBC 1.94 L (4.7-6.1) M/uL Hgb 6.4 L* (14.0-18.0) g/dL Hct 18.3 L* (42-52) % MCV 94.3 (80-100) fL MCH 33.0 (25-34) pg MCHC 35.0 (32-36) g/dL RDW Std Deviation 43.0 (36.4-46.3) fL RDW Coeff of Nick 12.7 (11.5-14.5) % Plt Count 328 (130-400) K/uL MPV 8.7 (7.4-10.4) fL Immature Gran % (Auto) 0.4 % Neut % (Auto) 69.8 % Lymph % (Auto) 21.8 % [place] % (Auto) 7.3 % Eos % (Auto) 0.6 % Baso % (Auto) 0.1 % Neut # (Auto) 6.67 H (1.4-6.5) K/uL Lymph # (Auto) 2.09 (1.2-3.4) K/uL [place] # (Auto) 0.70 H (0.11-0.59) K/uL Eos # (Auto) 0.06 (0-0.5) K/uL Baso # (Auto) 0.01 (0-0.2) K/uL Immature Gran # (Auto) 0.04 H (0.00-0.02) K/uL Polychromasia 1+ PT (9.0-12.0) Seconds INR (0.9-1.1) APTT 21.5 (21.0-31.0) Seconds PTT Ratio 0.8 Sodium 130 L (136-145) mmol/L Potassium 3.8 (3.5-5.1) mmol/L Chloride 96 L (98-107) mmol/L Carbon Dioxide 30 (21-32) mmol/L Anion Gap 4.0 (3-11) BUN 19 H (7-18) mg/dl Creatinine 0.77 (0.6-1.4) mg/dl Est Cr Clr Drug Dosing 117.6 ml/min Est GFR ( Amer) 117.6 ml/min Est GFR (Non-Af Amer) 101.4 ml/min BUN/Creatinine Ratio 24.7 H (10-20) Glucose 130 H (70-99) mg/dl Calcium 7.9 L (8.5-10.1) mg/dl Phosphorus (2.5-4.9) mg/dl Magnesium (1.8-2.4) mg/dl Total Bilirubin 0.3 (0.2-1) mg/dl AST 62 H (15-37) U/L ALT 60 (12-78) U/L Alkaline Phosphatase 60 (45-117) U/L Troponin I < 0.015 (0-0.045) ng/ml Total Protein 5.6 L (6.4-8.2) gm/dl Albumin 2.9 L (3.4-5.0) gm/dl Globulin 2.7 (2.5-4.0) gm/dl Albumin/Globulin Ratio 1.1 (0.9-2) Lipase 120 (73-393) U/L COVID-19 Eval Order SARS-CoV-2 (PCR) (Negative) Blood Type Blood Type Recheck Antibody Screen Crossmatch PG Care Time/CCT Total # of Minutes Spent Total Time Spent with Patient: Total time spent is greater than 50% in coordination of care (as documented) at patient's floor/unit and/or counseling patient: Coding Level of Care Code 22342 Subseq Hosp Care Lvl 3 Diagnoses GI bleed K92.2 Syncope R55 Acute blood loss anemia D62 Alcohol abuse F10.10 Chest pain R07.9 Prolonged QT interval R94.31 Right rib fracture S22.31XA Hiatal hernia with GERD K21.9; K44.9 Depression with anxiety F41.8 DVT prophylaxis Z29.9
[2021-04-25] MEDS: ESCITALOPRAM OXALATE 10 MG TAB PO SCH (11:15)
--- NOTE | 2021-04-25 18:00 | Gastroenterology Progress Note ---
Date of Service April 25, 2021 Assessment & Plan Admission and Anticipated Discharge Date Admission Date: April 24, 2021 Subjective No complaints. Dark stool x 1 this am. VS stable, abd soft. Labs show stable hgb, BUN trending down. A/P: GIB, esophgageal ulcer with VV s/p cautery/injxn day 1 -- complete PPI gtt tomorrow, then oral BID PPI x 8 weeks. Diet as inez. Results & Data ([facility]) Vital Signs (Past 12 Hours) Vital Signs Temp Pulse Pulse Pulse Resp BP Pulse Ox 04/25/21 17:44 93 H 04/25/21 16:30 37.1 C 80 19 129/73 96 04/25/21 12:08 36.9 C 76 18 122/72 96 04/25/21 08:21 36.7 C 90 19 123/77 96 04/25/21 07:50 78
[2021-04-26] MEDS: PANTOprazole 40 MG in DEXTROSE 5% 100 ML IV SCH ×3 (03:28→13:08)
--- NOTE | 2021-04-26 06:34 | Electrocardiogram Report ---
Test Reason : Blood Pressure : / mmHG Vent. Rate : 080 BPM Atrial Rate : 080 BPM P-R Int : 140 ms QRS Dur : 102 ms QT Int : 422 ms P-R-T Axes : 072 068 071 degrees QTc Int : 486 ms Normal sinus rhythm Prolonged QT Abnormal ECG When compared with ECG of 24-APR-2021 11:33, No significant change was found Confirmed by Colton Hung ([id number]) on 04/26/2021 6:33:26 AM Referred By: REFERRED SELF Confirmed By:Colton Hung
[2021-04-26 07:16] LABS: Basophils # (auto) 0.01 K/uL (0-0.2); Basophils % (auto) 0.1 %; Eosinophils # (auto) 0.19 K/uL (0-0.5); Eosinophils % (auto) 2.2 %; Hematocrit (blood only) 23.7 % (42-52); Hemoglobin 8.1 g/dL (14.0-18.0); Immature Granulocytes # (auto) 0.02 K/uL (0.00-0.02); Immature Granulocytes % (auto) 0.2 %; Lymphocytes # (auto) 1.64 K/uL (1.2-3.4); Lymphocytes % (auto) 18.7 %; Mean Corpuscular Hemoglobin 30.7 pg (25-34); Mean Corpuscular Hgb Conc 34.2 g/dL (32-36); Mean Corpuscular Volume 89.8 fL (80-100); Mean Platelet Volume 8.6 fL (7.4-10.4); Monocytes # (auto) 0.91 K/uL (0.11-0.59); Monocytes % (auto) 10.4 %; Neutrophils # (auto) 5.98 K/uL (1.4-6.5); Neutrophils % (auto) 68.4 %; Platelet Count 298 K/uL (130-400); RDW Standard Deviation 50.4 fL (36.4-46.3); Red Blood Count 2.64 M/uL (4.7-6.1); White Blood Count 8.75 K/uL (4.8-10.8)
[2021-04-26 07:48] LABS: Albumin Level 2.3 gm/dl (3.4-5.0); BUN Creatinine Ratio 16.8 (10-20); Calcium 7.5 mg/dl (8.5-10.1); Creatinine Clr Calc Pharmacy 113.2 ml/min; Est GFR (African American) 115.7 ml/min; Est GFR (Non-African American) 99.9 ml/min; Magnesium 2.1 mg/dl (1.8-2.4); Potassium 3.8 mmol/L (3.5-5.1)
[2021-04-26 07:51] LABS: Albumin Globulin Ratio 0.8 (0.9-2); Bilirubin,Total 0.3 mg/dl (0.2-1); Globulin 2.8 gm/dl (2.5-4.0); Phosphorus 3.2 mg/dl (2.5-4.9); Total Protein 5.1 gm/dl (6.4-8.2)
[2021-04-26] MEDS: FOLIC ACID 1 MG TAB PO SCH (09:14)
[2021-04-26] MEDS: THIAMINE HCL 100 MG in SYRINGE 9 ML IV SCH (09:14)
[2021-04-26] MEDS: ESCITALOPRAM OXALATE 10 MG TAB PO SCH (09:15)
[2021-04-26] MEDS: LIDOCAINE 5% 1 PATCH TD SCH (09:15)
--- NOTE | 2021-04-26 14:32 | Discharge Summary ---
Date of Service April 26, 2021 Admission HPI Per Admitting Provider This patient is a 56-year-old male with a history of heavy alcohol use, aspirin use, and depression, who presents to the ER with multiple episodes of syncope, lightheadedness, and epigastric and chest pain. He also reports 2 to 3 days of vomiting black coffee-ground material as well as black tarry stools. He reports he drinks about 4-5 beers a day and is also been taking daily aspirin for headaches. He denies any other NSAID use. No previous history of GI bleeding. In the ER, he was found to have a hemoglobin of 6.4 down from 12.72 months ago. He was mildly hyponatremic and had a mild elevation in his AST. Troponin was negative, lipase normal. Covid-[address] abdomen/pelvis shows small hiatal hernia with mildly dilated fluid-filled distal esophagus, redemonstration of multiple right-sided rib fractures, but no other acute intra-abdominal process. CT of the head was negative for acute issues, and chest x-ray negative for acute disease. ECG was normal sinus rhythm, 93 for the rate, prolonged QT at 492. In the ER, he was typed and crossmatched for 2 units of PRBCs and given IV PPI. I discussed the case with GI who will scope him urgently today after 1 dose of IV Reglan. Principal Diagnosis Acute blood loss anemia, GI bleed, esophageal ulcer, EtOH abuse Discharge Exam Constitutional WD/WN, vitals as above Eyes PERRL, conjunctivae normal, anicteric sclerae + anicteric sclerae ENMT external ear and nose normal, oropharynx normal Neck trachea midline, no thyromegaly Respiratory normal respiratory effort, lungs clear to auscultation Cardiovascular RRR, no murmur, no edema Chest (Breasts) Chest: normal inspection of chest Gastrointestinal (Abdomen) normal bowel sounds, soft, nontender, no hepatosplenomegaly Musculoskeletal Extremities: extremities normal to inspection; no cyanosis and no clubbing Skin no rashes, warm and dry Neurologic moves all extremities and awake; no focal motor deficits Psychiatric A+Ox3, euthymic affect Lymphatic no lymphedema Discharge Data Allergies Allergy/AdvReac Type Severity Reaction Status Date / Time cyclobenzaprine AdvReac Unknown RASH ON Verified 04/24/21 13:52 FACE Consultations 04/24/21 13:46 ED Decision to Admit Stat 04/24/21 17:32 Consult Gastroenterology Stat Procedures Performed Operation Date: 04/24/21 07:00 Actual Procedures p Esophagogastroduodenoscopy(Not Applicable) - Garo Barrera Case, DO Ordered Studies 04/24/21 12:48 CT abd pelvis IV con only Stat CT head/brain wo con Stat Chest X-Ray 04/24/21 11:42 XR chest 1V portable CLINICAL HISTORY: Atypical chest pain COMPARISON STUDY: 10/29/2016 FINDINGS: The cardiac and mediastinal contours are normal. There is no evidence of focal pulmonary consolidation. There is no evidence of failure. No pleural effusions are visualized.[Degenerative changes are present within the left AC joint IMPRESSION: No active disease in the chest. ACT 112: Negative or not required by law. Electronically signed by: Victorino Martin M.D. 04/24/2021 12:04 PM Abdomen/Pelvis CT 04/24/21 12:48 CT OF THE ABDOMEN AND PELVIS WITH CONTRAST CLINICAL HISTORY: Abdominal pain. Anemia. COMPARISON STUDY: CT of the abdomen and pelvis February 23, 2021. TECHNIQUE: Following IV administration of 94 mL of Optiray, axial images of the abdomen and pelvis were obtained from the lung bases to the proximal femurs. Images were reviewed in the axial, sagittal, and coronal planes. IV contrast was administered without complication. Automated exposure control was utilized for the study. A dose lowering technique was utilized adhering to the principles of ALARA. CT DOSE: 1045.41 mGycm FINDINGS: Multiple right-sided rib fractures are again noted. These were shown on CT of February 23, 2021. There is a small hiatal hernia. As before, the distal esophagus is mildly distended and fluid-filled. No pneumatosis, free air or portal venous gas is present. The liver, spleen, adrenal glands, kidneys and pancreas are normal. There is no biliary or pancreatic ductal dilatation. There is no peripancreatic or pericholecystic infiltration. The appendix is normal. Sensitivity for detection of bowel mucosal lesions is diminished given CT technique but none are identified. There is no evidence for a bowel obstruction. Colonic diverticulosis is noted without evidence for acute diverticulitis. There is no lymphadenopathy. There is no ascites. IMPRESSION: 1. No acute process within the abdomen or pelvis. 2. Small hiatal hernia with mildly dilated, fluid-filled distal esophagus, similar in appearance to prior CT. 3. Colonic diverticulosis without evidence for acute diverticulitis. 4. Redemonstration of multiple right-sided rib fractures. ACT 112: Negative or not required by law. Electronically signed by: Esteban Segura M.D. 04/24/2021 1:[address] 04/24/21 12:48 CT head/brain wo con CLINICAL HISTORY: Dizziness. Syncope. COMPARISON STUDY: No previous studies for comparison. TECHNIQUE: Axial CT of the brain is performed from the vertex to the skull base. IV contrast was not administered for this examination. A dose lowering technique was utilized adhering to the principles of ALARA. CT DOSE: 638.56 mGycm FINDINGS: No intra or extra-axial mass lesions are visualized. There is no CT evidence of acute cortical infarction. There is no evidence of midline shift. There is no acute hemorrhage. No calvarial fractures are visualized. There is no evidence of pathologic ventricular dilatation. There is no evidence of acute sinusitis IMPRESSION: No acute intracranial findings ACT 112: Negative or not required by law. Electronically signed by: Victorino Martin M.D. 04/24/2021 1:31 PM Hospital Course (1) GI bleed: Presented with syncope, chest pain and epigastric pain with hematemesis and melena and a hemoglobin of 6.4 Strongly heme positive on rectal examination by ER physician on arrival With heavy aspirin use and alcohol abuse, suspected upper GI bleed. CT/abdomen of pelvis performed in the ER showed fluid-filled distal esophagus which is likely blood products, but otherwise nothing acute EGD performed urgently on 04/25 showed bleeding large esophageal ulcer-cauterized Still some likely passage of old blood but now stools formed, hgb stable at 8.1 Feels much better, less epigastric pain, inez soft diet Has received total 3 units PRBCs -Consult AI-[id number]-[id number] for PPI po bid x 8 weeks after received 3 days of IV PPI gtt -continue low fiber/soft diet at home -Avoid NSAIDs and aspirin, counseled on alcohol cessation stable for dc to home (2) Syncope: Likely secondary to acute blood loss anemia as above although blood pressures here are mildly elevated but likely is orthostatic Troponin negative x 2, ECG without ischemic changes -Monitor on telemetry for arrhythmias-none -Transfused with PRBCs and now much improved -Checked orthostatics-negative on day of discharge (3) Acute blood loss anemia: As above, secondary to GI bleeding No other evidence of bleeding internally on CT abdomen/pelvis (4) Alcohol abuse: Counseled on cessation AWSS protocol with Ativan IV as needed -received IV thiamine daily, folic acid daily-add on as po to go home -he reports he started drinking again after PCP refused to Rx ativan anymore- discussed this was not a good buttermaker solution but will provide ativan prn anxiety here -gave ativan Rx for home use short supply (5) Chest pain: Likely secondary to hematemesis as above with esophageal ulcer, ECG without ischemic changes and initial troponin negative as above Serial troponin neg x 2 Daily ECG with prolonged QT only Giving IV PPI Now much improved (6) Prolonged QT interval: QTC mildly prolonged and persistent at 489 but no arrhythmias ok to continue Abilify and Lexapro (7) Right rib fracture: Had this after a fall 2 months ago, continues to take Tylenol and aspirin as needed Present on imagingon admission but not causing him much pain (8) Hiatal hernia with GERD: As above, visualized on CT Continue PPI (9) Depression with anxiety: continue Abilify and Lexapro -could consider increase in Lexapro add on prn lorazepam but not a good buttermaker solution (10) DVT prophylaxis: SCDs only given acute GI bleeding Disposition-dc to home Total Time Total Time Spent Total Time Spent (In Minutes): 35 min Total Time Includes: Examination of the Patient, Discharge Planning and Medication Reconciliation Discharge Plan Discharge Items Patient Disposition: Home - Self-Care Reason For Visit: ACUTE GI BLEED, ANEMIA Discharge Diagnosis: Esophageal ulcer with GI bleeding, Acute blood loss anemia Condition on Discharge: Good Activity: As commented below Lifting: Gradually increase as tolerated Driving/Machine Use: Resume 3 days after discharge Non-emergency contact: Primary Care Provider Call non-emergency contact if: you have any medication questions and your symptoms worsen Follow-up/Referrals: Therese Leslie DO [Physician] - (Please call to schedule a new patient hospital follow up appointment with Dr. Leslie within 1-2 weeks.) PCP,NO [Primary Care Provider] - Diet: Low Fiber Addtl Attending Provider Instructions: Please continue the antacid Protonix twice a day x 8 weeks. Do not drink any alcohol or chew tobacco as this contributed to the ulcer in your esophagus. Also, do not take any aspirin or NSAID-containing products. You can take the lorazepam as needed for anxiety or alcohol withdrawal, but this is not a halfway solution. Please continue taking the thiamine and a multivitamin, folate to improve your nutritional status. Pending Studies at Discharge: No Stand-Alone Forms: My [facility] Medications and DC Order Prescriptions: New lorazepam 1 mg Tablet 1 mg PO Q8 PRN (Reason: anxiety) Qty: 14 RF: 0 folic acid 1 mg Tablet 1 mg PO QAM Qty: 30 RF: 0 thiamine HCl (vitamin B1) 100 mg tablet 100 mg PO DAILY Qty: 30 RF: 0 pantoprazole [Protonix] 40 mg tablet,delayed release (DR/EC) 40 mg PO BID Qty: 60 RF: 1 Continued multivitamin Tablet 1 tab PO QAM RF: 0 escitalopram oxalate [Lexapro] 10 mg tablet 10 mg PO QAM RF: 0 aripiprazole [Abilify] 10 mg Tablet 10 mg PO QAM RF: 0 Discharge Orders: Discharge Order (Routine); Ordered 04/26/21 Ordered By: Socorro Encinas Admission Data Admit Date/Time: 04/24/21 15:45 Attending Provider: Socorro Encinas Admit Provider: Socorro Encinas Primary Care Provider: PCP,NO Other Providers: Garo Oneil ; Socorro Encinas Coding Level of Care Code D/C Day Management >30 mins Diagnoses GI bleed K92.2 Syncope R55 Acute blood loss anemia D62 Alcohol abuse F10.10 Chest pain R07.9 Prolonged QT interval R94.31 Right rib fracture S22.31XA Hiatal hernia with GERD K21.9; K44.9 Depression with anxiety F41.8 DVT prophylaxis Z29.9
--- NOTE | 2021-04-27 06:23 | Electrocardiogram Report ---
Test Reason : Blood Pressure : / mmHG Vent. Rate : 079 BPM Atrial Rate : 079 BPM P-R Int : 144 ms QRS Dur : 100 ms QT Int : 430 ms P-R-T Axes : 071 053 060 degrees QTc Int : 493 ms Normal sinus rhythm Prolonged QT Abnormal ECG When compared with ECG of 25-APR-2021 06:01, No significant change was found Confirmed by Colton Hung ([id number]) on 04/27/2021 6:23:23 AM Referred By: REFERRED SELF Confirmed By:Colton Hung
== END 2021-04-26 15:52 | disposition home or self-care (01) | DRG 381 ==
LOC: ED 11:25 → OR 15:44 → 2S 15:44